=== PATIENT | male | born 1935 | race Caucasian/White ===

== ENCOUNTER 2018-04-30 22:49 | Inpatient (IN) ==
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
[2018-04-30 23:51] LABS: Baso % (Auto) 0.4 % (0.0-2.0); Eos # (Auto) 0.2 th/mm3 (0.0-0.4); Eos % (Auto) 2.9 % (0.0-4.0); Hematocrit 42.2 % (39.0-51.0); Hemoglobin 14.2 gm/dL (13.0-17.0); Lymph # (Auto) 1.6 th/mm3 (1.0-4.8); Lymph % (Auto) 25.2 % (9.0-44.0); Mean Corpuscular HGB Conc 33.6 % (32.0-36.0); Mean Corpuscular Hemoglobin 31.3 pg (27.0-34.0); Mean Corpuscular Volume 93.4 fL (80.0-100.0); Mean Platelet Volume 7.9 fL (7.0-11.0); Mono # (Auto) 0.6 th/mm3 (0.0-0.9); Mono % (Auto) 9.5 % (0.0-8.0); Platelet Count 313 th/mm3 (150-450); Red Blood Count 4.52 mil/mm3 (4.50-5.90); Red Cell Distribution Width 13.5 % (11.6-17.2); White Blood Count 6.5 th/mm3 (4.0-11.0)
[2018-05-01] LABS: Bilirubin,Urine Negative (Negative); Clarity,Urine Clear (Clear); Color,Urine Yellow (Yellw/Straw); Glucose,Urine (UA) Negative (Negative); Leukocyte Esterase,Urine Negative (Negative); Mucus,Urine Few /lpf (Occasional); Nitrite,Urine Negative (Negative); Specific Gravity,Urine 1.026 (1.002-1.035); Squamous Epithelial Cell,Urine 1 /hpf (0-5); Urobilinogen,Urine 4 or Greater mg/dL (Less than 2)
[2018-05-01 00:03] LABS: Amphetamine Screen,Urine Neg (Neg); Barbiturate Screen,Urine Neg (Neg); Cannabinoid Screen,Urine Neg (Neg); Cocaine Screen,Urine Neg (Neg)
[2018-05-01 00:11] LABS: Opiate Screen,Urine Neg (Neg)
[2018-05-01 00:12] LABS: Alanine Aminotransferase 24 U/L (12-78); Albumin 4.1 g/dL (3.4-5.0); Anion Gap 10 meq/L (5-15); Aspartate Aminotransferase 26 U/L (15-37); Blood Urea Nitrogen 18 mg/dL (7-18); Calcium 9.4 mg/dL (8.5-10.1); Carbon Dioxide 27.1 meq/L (21.0-32.0); Chloride 109 meq/L (98-107); Glomerular Filtration Rate 59 mL/min (>89); Glucose,Random 95 mg/dL (74-106); Potassium 3.8 meq/L (3.5-5.1); Sodium 146 meq/L (136-145)
[2018-05-01 00:22] LABS: Alkaline Phosphatase 58 U/L (45-117); Total Protein 7.6 g/dL (6.4-8.2)
[2018-05-01 00:39] LABS: Alcohol 60 mg/dL (0-5)
[2018-05-01] MEDS ORDERED: Acetaminophen 325 MG Tablet PO PRN (09:45)
[2018-05-01] MEDS ORDERED: Bisacodyl 10 MG Supp RECTAL PRN (09:45)
[2018-05-01] MEDS ORDERED: Aluminum/Magnesium/Simethacone Susp 30 ML UDC PO PRN (09:45)
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
[2018-05-01] MEDS ORDERED: SIMVASTATIN 5 MG PO SCH (18:00)
[2018-05-01] MEDS: Senna/Docusate Sodium 8.6/50 MG Tablet PO SCH (22:03)
[2018-05-01] MEDS: Pantoprazole Sodium 20 MG DR Tablet PO SCH (22:06)
[2018-05-02 07:45] LABS: Carbon Dioxide 28.4 meq/L (21.0-32.0); Potassium 3.4 meq/L (3.5-5.1)
[2018-05-02 07:49] LABS: Chol/HDL Ratio 4.06 Ratio; HDL Cholesterol 43.1 mg/dL (40.0-60.0)
[2018-05-02] MEDS: Pantoprazole Sodium 20 MG DR Tablet PO SCH ×2 (10:03→21:15)
[2018-05-02] MEDS: Senna/Docusate Sodium 8.6/50 MG Tablet PO SCH ×2 (10:03→21:18)
[2018-05-02 12:20] LABS: Hemoglobin A1c 5.6 % (4.3-6.0)
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
[2018-05-02] MEDS: Lisinopril 10 MG Tablet PO SCH (16:32)
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
[2018-05-03] MEDS: QUEtiapine 25 MG Tablet PO SCH ×2 (00:18→23:58)
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
[2018-05-03] MEDS: Senna/Docusate Sodium 8.6/50 MG Tablet PO SCH ×2 (10:29→20:50)
[2018-05-03] MEDS: Lisinopril 10 MG Tablet PO SCH (10:30)
[2018-05-03] MEDS: Pantoprazole Sodium 20 MG DR Tablet PO SCH ×2 (10:31→20:50)
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
[2018-05-04] MEDS: LORazepam 0.5 MG Tablet PO PRN ×2 (01:11→21:45)
[2018-05-04] MEDS: Pantoprazole Sodium 20 MG DR Tablet PO SCH ×3 (08:42→21:44)
[2018-05-04] MEDS: Senna/Docusate Sodium 8.6/50 MG Tablet PO SCH ×3 (08:42→21:45)
[2018-05-04] MEDS: QUEtiapine 25 MG Tablet PO SCH ×3 (08:42→21:44)
[2018-05-04] MEDS: Lisinopril 10 MG Tablet PO SCH ×2 (09:48→21:44)
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
[2018-05-05 08:20] LABS: Hematocrit 44.4 % (39.0-51.0); Mean Corpuscular HGB Conc 33.8 % (32.0-36.0); Mean Corpuscular Hemoglobin 31.4 pg (27.0-34.0); Mean Corpuscular Volume 92.9 fL (80.0-100.0); Mean Platelet Volume 8.1 fL (7.0-11.0); Platelet Count 309 th/mm3 (150-450); Red Blood Count 4.78 mil/mm3 (4.50-5.90); Red Cell Distribution Width 13.3 % (11.6-17.2); White Blood Count 5.7 th/mm3 (4.0-11.0)
[2018-05-05 08:54] LABS: Calcium 9.5 mg/dL (8.5-10.1); Carbon Dioxide 26.7 meq/L (21.0-32.0); Potassium 3.7 meq/L (3.5-5.1)
[2018-05-05] MEDS: QUEtiapine 25 MG Tablet PO SCH ×2 (09:10→20:27)
[2018-05-05] MEDS: Lisinopril 10 MG Tablet PO SCH (09:13)
[2018-05-05] MEDS: LORazepam 0.5 MG Tablet PO PRN ×2 (09:15→20:29)
[2018-05-05] MEDS: Pantoprazole Sodium 20 MG DR Tablet PO SCH ×2 (09:16→20:27)
[2018-05-05] MEDS: Senna/Docusate Sodium 8.6/50 MG Tablet PO SCH ×2 (11:56→20:29)
--- NOTE | 2018-05-05 12:17 | P.PNPSY ---
Subjective Remarks: Pt seen and discussed with staff. Chart reviewed. Pt remains confused. RN reports that pt's reported that pt has a hx of schizophrenia. Yesterday he received ativan overnight for agitation and restlessness. Yesterday during visitation with , he became agitated due to focus on delusions of her cheating. No SI/HI. Mental Status Examination Appearance: Appropriate Consciousness: Alert Orientation: Person Motor Activity: Normal gait Speech: Unremarkable Language: Adequate Fund of Knowledge: Inadequate Attention and Concentration: Easily distracted Memory: Impaired Mood: Anxious Affect: Anxious Thought Process & Associations: Tangential Thought Content: Delusional Hallucination Type: None Delusion Type: Other (jealous-believes is having affairs) Suicidal Ideation: No Suicidal Plan: No Suicidal Intention: No Homicidal Ideation: No Homicidal Plan: No Homicidal Intention: No Insight: Poor Judgment: Impulsive Assessment and Plan - Assessment (1) Dementia with behavioral disturbance Code(s): F03.91 - Unspecified dementia with behavioral disturbance Status: Acute - Plan Plan: Continue current tx plan. Justification for Continued Inpatient Stay: agitation
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
[2018-05-05] MEDS ORDERED: Lisinopril 10 MG Tablet PO ONE (17:00)
[2018-05-05 20:14] LABS: Bilirubin,Urine Negative (Negative); Clarity,Urine Clear (Clear); Color,Urine Yellow (Yellw/Straw); Glucose,Urine (UA) Negative (Negative); Leukocyte Esterase,Urine Negative (Negative); Mucus,Urine Few /lpf (Occasional); Nitrite,Urine Negative (Negative); Specific Gravity,Urine 1.015 (1.002-1.035)
--- NOTE | 2018-05-06 08:22 | P.PNPSY ---
Subjective Chief Complaint: Demenita, with behavioral disturbance Remarks: Medical records reviewed and discussed with nursing staff. Patient is in the common area eating breakfast. Patient engaged in conversation with Fariba RN, Karen RN and myself. He continues to have delusions that his is cheating on him. He broke out in tears when discussing his . He states that he is sleeping well and just wants to go home. Cooperative. No behavioral concerns. Review of Systems All other systems reviewed negative except as stated in HPI Mental Status Examination Appearance: Appropriate Consciousness: Alert Orientation: Person Motor Activity: Normal gait Speech: Unremarkable Language: Adequate Fund of Knowledge: Inadequate Attention and Concentration: Easily distracted Memory: Impaired Mood: Sad, Anxious, Other (crying) Affect: Flat, Blunt Thought Process & Associations: Tangential Thought Content: Delusional Hallucination Type: None Delusion Type: Other (jealous-believes is having affairs) Suicidal Ideation: No Suicidal Plan: No Suicidal Intention: No Homicidal Ideation: No Homicidal Plan: No Homicidal Intention: No Insight: Poor Judgment: Impulsive Assessment and Plan - Assessment (1) Dementia with behavioral disturbance Code(s): F03.91 - Unspecified dementia with behavioral disturbance Status: Acute - Plan Plan: Continue current tx plan. Justification for Continued Inpatient Stay: Moving patient to a less restrictive environment may result in his decompensation.
[2018-05-06] MEDS: QUEtiapine 25 MG Tablet PO SCH ×2 (08:24→20:05)
[2018-05-06] MEDS: Lisinopril 20 MG Tablet PO SCH (08:25)
[2018-05-06] MEDS: Pantoprazole Sodium 20 MG DR Tablet PO SCH ×2 (08:26→20:04)
[2018-05-06] MEDS: LORazepam 0.5 MG Tablet PO PRN (08:28)
[2018-05-06] MEDS: Senna/Docusate Sodium 8.6/50 MG Tablet PO SCH ×2 (09:00→20:04)
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
--- NOTE | 2018-05-06 14:25 | XR ---
EXAM DATE: 05/06/2018 2:16 PM EDT AGE/SEX: 83 years / Male INDICATIONS: Left hip pain post fall CLINICAL DATA: This is the patient's initial encounter. Patient reports that signs and symptoms have been present for 1 day and indicates a pain score of 4/10. MEDICAL/SURGICAL HISTORY: None. None. COMPARISON: [facility], CT ABDOMEN AND PELVIS W/O CONTRAST, 08/23/2016. . FINDINGS: Bony structures are intact and in normal alignment. Joints are intact without dislocation or signifi cant arthropathy. Osseous density is normal. Soft tissues are unremarkable. No radiopaque foreign bodies seen. CONCLUSION: No evidence of recent bony injury. Electronically signed by: Matt Bar MD 05/06/2018 2:23 PM EDT
[2018-05-07] MEDS: LORazepam 0.5 MG Tablet PO PRN (01:19)
[2018-05-07] MEDS: Pantoprazole Sodium 20 MG DR Tablet PO SCH ×2 (08:48→21:19)
[2018-05-07] MEDS: Senna/Docusate Sodium 8.6/50 MG Tablet PO SCH ×2 (08:48→21:19)
[2018-05-07] MEDS: Lisinopril 20 MG Tablet PO SCH ×2 (08:49→22:48)
[2018-05-07] MEDS: QUEtiapine 25 MG Tablet PO SCH ×2 (08:49→21:19)
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
--- NOTE | 2018-05-07 16:42 | P.TTN ---
- Patient Problems Problems: 1. Discharge planning 2. Medication compliance 3. Knowledge deficit 4. Lack of coping skills - Progress Toward Goals Provider Present: Dr. Kiara Gan Provider Input: Patient is refusing medication presently , continues to be paranoid and beleiving is having an affair. Patient should be able to go home with . Psychiatric Counselors Present: Other Psychiatric Therapist Input: Linda- Patient continues to present with paranoia , suspicious - Documentation Teaching Recipient: Patient
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
[2018-05-08] MEDS: QUEtiapine 25 MG Tablet PO SCH (08:00)
[2018-05-08] MEDS: Lisinopril 20 MG Tablet PO SCH ×2 (08:00→20:57)
[2018-05-08] MEDS: Senna/Docusate Sodium 8.6/50 MG Tablet PO SCH ×2 (08:00→20:55)
[2018-05-08] MEDS: Pantoprazole Sodium 20 MG DR Tablet PO SCH ×2 (08:01→20:57)
[2018-05-08] MEDS ORDERED: hydrALAZINE 25 MG Tablet PO PRN (08:58)
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
[2018-05-08] MEDS ORDERED: QUEtiapine 25 MG Tablet PO SCH (21:00)
[2018-05-08] MEDS: LORazepam 0.5 MG Tablet PO PRN (22:11)
--- NOTE | 2018-05-08 22:27 | ECG ---
Date Performed: 05/08/2018 Time Performed: 18:49:02 PTAGE: 83 years EKG: SINUS BRADYCARDIA WITH FIRST DEGREE AV BLOCK WITH OCCASIONAL VENTRICULAR PREMATURE COMPLEXE S POSSIBLE RIGHT VENTRICULAR CONDUCTION DELAY LEFT ANTERIOR FASCICULAR BLOCK POSSIBLE LEFT VENTRICULA R HYPERTROPHY LATERAL MYOCARDIAL INFARCTION PREVIOUS TRACING : 02/11/2014 11.54 Since the previous tracing, no significant change not ed DOCTOR: Michael Olvera Interpretating Date/Time 05/08/2018 22:25:21
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
[2018-05-09] MEDS: QUEtiapine 25 MG Tablet PO SCH ×2 (12:11→21:03)
[2018-05-09] MEDS: Pantoprazole Sodium 20 MG DR Tablet PO SCH ×2 (12:11→21:06)
[2018-05-09] MEDS: Lisinopril 20 MG Tablet PO SCH ×2 (12:11→21:07)
[2018-05-09] MEDS: Senna/Docusate Sodium 8.6/50 MG Tablet PO SCH ×2 (12:11→21:06)
--- NOTE | 2018-05-09 13:15 | P.PNPSY ---
Subjective Chief Complaint: Dementia, with behavioral disturbance Remarks: Patient seen and examined in coverage for Dr. Gan. Chart reviewed. Case discussed with nursing staff. Patient noted to be wandering into other people' s rooms. He is reportedly medication compliant. On my examination today, the patient continues to have concerns, reportedly delusional, about infidelity by . However, he insists that "what happened is nothing" referring to these allegations of infidelity. He does not verbalize any urge to injure his or anyone else. No side effects from medications. No physical complaints. Vital Signs Temp Pulse Resp BP Pulse Ox 05/09/18 10:30 50 L 16 137/66 96 05/09/18 06:00 97.3 F L 54 L 18 166/85 H 95 05/08/18 18:24 97.6 F 65 18 161/80 H 97 Intake and Output 05/09/18 05/09/18 05/09/18 06:59 14:59 22:59 Intake Total 360 / 360 Balance 360 / 360 Intake: Oral 360 / 360 Other: # Voids 2 Labs reviewed. Mental Status Examination Appearance: Appropriate Consciousness: Alert Orientation: Person Motor Activity: Normal gait, Other (No motor abnormalities noted) Speech: Unremarkable Language: Adequate Fund of Knowledge: Inadequate Attention and Concentration: Easily distracted Memory: Impaired Mood: Anxious Affect: Anxious Thought Process & Associations: Tangential Thought Content: Preoccupations, Delusional Hallucination Type: None Delusion Type: Other (that his is cheating on him) Suicidal Ideation: No Homicidal Ideation: No Insight: Poor Judgment: Poor Assessment and Plan - Assessment (1) Dementia with behavioral disturbance Code(s): F03.91 - Unspecified dementia with behavioral disturbance Status: Acute - Plan Plan: Titrate Seroquel to 12.5 mg in the morning and 37.5 mg at bedtime to target ongoing psychiatric symptoms. Continue to monitor on the inpatient unit. Continue other medications and care as ordered. Justification for Continued Inpatient Stay: Medication changes. Risk for decompensation in less restrictive environment. Discharge Planning: Per Dr. Gan
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
[2018-05-10] MEDS: Lisinopril 20 MG Tablet PO SCH ×2 (08:18→20:35)
[2018-05-10] MEDS: QUEtiapine 25 MG Tablet PO SCH ×2 (08:19→20:33)
[2018-05-10] MEDS: Pantoprazole Sodium 20 MG DR Tablet PO SCH ×2 (08:19→20:35)
[2018-05-10] MEDS: Senna/Docusate Sodium 8.6/50 MG Tablet PO SCH ×2 (08:19→20:31)
[2018-05-10] MEDS ORDERED: amLODIPine 5 MG Tablet PO SCH (09:00)
--- NOTE | 2018-05-10 10:36 | P.PNPSY ---
Subjective Chief Complaint: Dementia, with behavioral disturbance Remarks: Patient seen and case discussed with nursing staff in coverage for Dr. Gan. Chart reviewed. Ongoing delusional material regarding patient's having an affair per nursing staff. Patient noted to be inappropriately flirty with female staff. For me, patient remains confused but calm. No evident medication side effects. No physical distress. Vital Signs Temp Pulse Resp BP Pulse Ox 05/10/18 10:20 68 16 147/74 H 98 05/10/18 05:34 97.6 F 54 L 18 173/77 H 98 05/09/18 17:39 97.1 F L 56 L 16 149/82 H 97 Labs reviewed. No new labs. Review of Systems other (limited ROS today) Mental Status Examination Appearance: Appropriate Consciousness: Alert Orientation: Person Motor Activity: Normal gait, Other (No abnormal motor movements noted) Speech: Unremarkable Language: Adequate Fund of Knowledge: Inadequate Attention and Concentration: Easily distracted Memory: Impaired Mood: Anxious Affect: Anxious Thought Process & Associations: Tangential Thought Content: Preoccupations, Delusional Hallucination Type: None Delusion Type: Other (that his is cheating on him) Suicidal Ideation: No Homicidal Ideation: No Insight: Poor Judgment: Poor Assessment and Plan - Assessment (1) Dementia with behavioral disturbance Code(s): F03.91 - Unspecified dementia with behavioral disturbance Status: Acute - Plan Plan: Titrate Seroquel to 25/37.5mg to target ongoing delusions in the setting of dementia. Hospitalist input appreciated. Continue to monitor on the inpatient unit. Continue other medications and care as ordered. Patient's case was presented to the [place] act court and placed in continuance for 1 week with to serve as HCS. Justification for Continued Inpatient Stay: Medication changes. High risk for decompensation in less restrictive environment. Discharge Planning: Per Dr. Gan.
[2018-05-10] MEDS: LORazepam 0.5 MG Tablet PO PRN (10:59)
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
[2018-05-10] MEDS: amLODIPine 5 MG Tablet PO SCH (20:31)
[2018-05-11] MEDS: amLODIPine 5 MG Tablet PO SCH ×2 (08:55→21:20)
[2018-05-11] MEDS: Senna/Docusate Sodium 8.6/50 MG Tablet PO SCH ×2 (08:56→21:21)
[2018-05-11] MEDS: Pantoprazole Sodium 20 MG DR Tablet PO SCH ×2 (08:56→21:21)
[2018-05-11] MEDS: QUEtiapine 25 MG Tablet PO SCH ×2 (08:56→21:22)
[2018-05-11] MEDS: Lisinopril 20 MG Tablet PO SCH ×2 (08:56→21:22)
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
[2018-05-11] MEDS: hydrALAZINE 25 MG Tablet PO SCH (21:21)
--- NOTE | 2018-05-11 21:23 | P.PNPSY ---
Subjective Chief Complaint: Dementia, with behavioral disturbance Remarks: Patient seen for follow, chart reviewed. Discussion with nursing staff reported the patient with confusion, no behavioral disturbances, no paranoia. Patient was found ambulating on the unit, calm and cooperative; noted to be confused. Patient noted not to endorse any paranoid delusions. He denies delusion that his is cheating on him, reports his mood as being "good", sleeping well, good appetite, continues with confusion and rambling at times. Review of Systems All other systems reviewed negative except as stated in HPI Mental Status Examination Appearance: Appropriate Consciousness: Alert Orientation: Person Motor Activity: Normal gait, Other (No abnormal motor movements noted) Speech: Unremarkable Language: Adequate Fund of Knowledge: Inadequate Attention and Concentration: Easily distracted Memory: Impaired Mood: Good Affect: Appropriate Thought Process & Associations: Tangential, Other (rambling at times) Thought Content: Preoccupations, Delusional Hallucination Type: None Delusion Type: Other (that his is cheating on him - denies today) Suicidal Ideation: No Suicidal Plan: No Suicidal Intention: No Homicidal Ideation: No Homicidal Plan: No Homicidal Intention: No Insight: Poor Judgment: Poor Assessment and Plan - Assessment (1) Dementia with behavioral disturbance Code(s): F03.91 - Unspecified dementia with behavioral disturbance Status: Acute - Plan Plan: Patient with baseline confusion, no longer endorsing paranoia nor any delusion that his is cheating on him. Will continue current treatment, continue to monitor mood and behavior. Will continue to observe family to visit and if no further paranoid delusions and no further safety concerns as well as if family willing to accept patient back into the home, patient potentially to be discharged to family. Justification for Continued Inpatient Stay: At risk for further decompensation at lower level of care.
[2018-05-12] MEDS: amLODIPine 5 MG Tablet PO SCH ×2 (09:47→21:13)
[2018-05-12] MEDS: Lisinopril 20 MG Tablet PO SCH ×2 (09:47→21:13)
[2018-05-12] MEDS: hydrALAZINE 25 MG Tablet PO SCH ×2 (09:47→21:13)
[2018-05-12] MEDS: Senna/Docusate Sodium 8.6/50 MG Tablet PO SCH ×2 (09:47→21:28)
[2018-05-12] MEDS: Pantoprazole Sodium 20 MG DR Tablet PO SCH ×2 (09:47→21:12)
[2018-05-12] MEDS: QUEtiapine 25 MG Tablet PO SCH ×2 (09:47→21:14)
--- NOTE | 2018-05-12 12:41 | P.PNPSY ---
Subjective Chief Complaint: Dementia, with behavioral disturbance Remarks: Reviewed electronic medical records and discussed case with staff. Follow-up was conducted in the day room with QUINN Vaca present. Patient continues to be confused. He states that he slept "nice". And that he has been eating well. He complains that is the "same thing every day". His nurse advises he has had no behavioral issues however, they still continue to hide his medicines and putting. Upon discharge, his needs to be made aware of how best to administer his medications for his future success. Mental Status Examination Appearance: Appropriate Consciousness: Alert Orientation: Person Motor Activity: Normal gait, Other (No abnormal motor movements noted) Speech: Unremarkable Language: Adequate Fund of Knowledge: Inadequate Attention and Concentration: Easily distracted Memory: Impaired Mood: Good Affect: Appropriate Thought Process & Associations: Tangential, Other (rambling at times) Thought Content: Preoccupations, Delusional Hallucination Type: None Delusion Type: Other (that his is cheating on him - denies today) Suicidal Ideation: No Suicidal Plan: No Suicidal Intention: No Homicidal Ideation: No Homicidal Plan: No Homicidal Intention: No Insight: Poor Judgment: Poor Assessment and Plan - Assessment (1) Dementia with behavioral disturbance Code(s): F03.91 - Unspecified dementia with behavioral disturbance Status: Acute - Plan Plan: Patient will be reevaluated Monday by the attending psychiatrist. Continue with current treatment plan. Justification for Continued Inpatient Stay: Moving this patient to a less restrictive environment would likely result in decompensation.
--- NOTE | 2018-05-13 08:22 | P.PNPSY ---
Subjective Chief Complaint: Dementia, with behavioral disturbance Remarks: Reviewed electronic medical records and discussed case with staff. Follow-up was conducted in the day room with QUINN Lockett present. Patient is pre- occupied with being discharged. No behavioral concerns. Eating and sleeping well. 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 Per notes discharge plan in progress. . Review of Systems All other systems reviewed negative except as stated in HPI Mental Status Examination Appearance: Appropriate Consciousness: Alert Orientation: Person Motor Activity: Normal gait, Other (No abnormal motor movements noted) Speech: Unremarkable Language: Adequate Fund of Knowledge: Inadequate Attention and Concentration: Easily distracted Memory: Impaired Mood: Good Affect: Appropriate Thought Process & Associations: Tangential, Other (rambling at times) Thought Content: Preoccupations, Delusional Hallucination Type: None Delusion Type: Other (that his is cheating on him - denies today) Suicidal Ideation: No Suicidal Plan: No Suicidal Intention: No Homicidal Ideation: No Homicidal Plan: No Homicidal Intention: No Insight: Poor Judgment: Poor Assessment and Plan - Assessment (1) Dementia with behavioral disturbance Code(s): F03.91 - Unspecified dementia with behavioral disturbance Status: Acute - Plan Plan: Patient will be reevaluated Monday by the attending psychiatrist. Continue with current treatment plan. Justification for Continued Inpatient Stay: Moving patient to a less restrictive environment may result in his decompensation.
[2018-05-13] MEDS: Lisinopril 20 MG Tablet PO SCH ×2 (08:40→22:13)
[2018-05-13] MEDS: Senna/Docusate Sodium 8.6/50 MG Tablet PO SCH ×2 (08:40→20:07)
[2018-05-13] MEDS: Pantoprazole Sodium 20 MG DR Tablet PO SCH ×2 (08:40→20:07)
[2018-05-13] MEDS: hydrALAZINE 25 MG Tablet PO SCH ×2 (08:40→20:08)
[2018-05-13] MEDS: QUEtiapine 25 MG Tablet PO SCH ×2 (08:40→20:08)
[2018-05-13] MEDS: amLODIPine 5 MG Tablet PO SCH ×2 (08:41→20:06)
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
[2018-05-13] MEDS: LORazepam 0.5 MG Tablet PO PRN (21:58)
[2018-05-14 05:36] VITALS: BP 164/79; PULSE 60; RESP 18; TEMP 97.4; O2SAT 95
[2018-05-14] MEDS: Pantoprazole Sodium 20 MG DR Tablet PO SCH (09:01)
[2018-05-14] MEDS: Senna/Docusate Sodium 8.6/50 MG Tablet PO SCH (09:01)
[2018-05-14] MEDS: amLODIPine 5 MG Tablet PO SCH (09:01)
[2018-05-14] MEDS: QUEtiapine 25 MG Tablet PO SCH (09:01)
[2018-05-14] MEDS: Lisinopril 20 MG Tablet PO SCH (09:02)
[2018-05-14] MEDS: hydrALAZINE 25 MG Tablet PO SCH (09:02)
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
[2018-05-16] MEDS: hydrALAZINE 25 MG Tablet PO SCH (10:38)
[2018-05-16] MEDS: amLODIPine 5 MG Tablet PO SCH (10:39)
[2018-05-16] MEDS: Pantoprazole Sodium 20 MG DR Tablet PO SCH (10:39)
[2018-05-16] MEDS: Senna/Docusate Sodium 8.6/50 MG Tablet PO SCH (10:42)
[2018-05-16] MEDS: Lisinopril 20 MG Tablet PO SCH (10:43)
[2018-05-16] MEDS: QUEtiapine 25 MG Tablet PO SCH (10:44)
== END 2018-05-14 13:00 | disposition home or self-care (01) ==
LOC: NEPE 22:49 → NEDA 05-01 09:43 → H250 05-01 11:16
PROVIDERS: ADMIT Student in an Organized Health Care Education/Training Program; ATTEND Student in an Organized Health Care Education/Training Program

== ENCOUNTER 2018-05-15 13:48 | Inpatient (IN) ==
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
[2018-05-15] MEDS ORDERED: Bisacodyl 10 MG Supp RECTAL PRN (18:41)
[2018-05-15] MEDS ORDERED: Senna/Docusate Sodium 8.6/50 MG Tablet PO PRN (18:41)
[2018-05-15] MEDS ORDERED: Aluminum/Magnesium/Simethacone Susp 30 ML UDC PO PRN (18:41)
[2018-05-15] MEDS: Pantoprazole Sodium 20 MG DR Tablet PO SCH (20:45)
[2018-05-15] MEDS: amLODIPine 5 MG Tablet PO SCH (20:45)
[2018-05-15] MEDS ORDERED: hydrALAZINE 25 MG Tablet PO SCH (21:00)
[2018-05-15] MEDS ORDERED: QUEtiapine 25 MG Tablet PO SCH (21:00)
[2018-05-16] MEDS ORDERED: QUEtiapine 25 MG Tablet PO SCH ×2 (09:00→20:03)
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
--- NOTE | 2018-05-16 13:23 | P.TTN ---
- Patient Problems Problems: 1. Discharge planning 2. Medication compliance 3. Knowledge deficit 4. Lack of coping skills - Progress Toward Goals Provider Present: Dr. Kath Foster, Dr. Kiara Gan Provider Input: Remain for further stabilization. Work with Family on Placement. Nurse(s) Present: Nola Nurse Input: Non-Compliant with medications, confused, requires redirection. Not sleeping. Psychiatric Counselors Present: Danny Genao Jr., [facility], Other (Linda Neil) Psychiatric Therapist Input: Counselor will meet with patient to discuss a safe discharge plan. Group Spec/RT/OT/SIMMS Present: BERE Dyson Group Spec/RT/OT/SIMMS Input: Patient will attend the group activities with encouragement. Pt is somewhat exit seeking. - Documentation Teaching Recipient: Patient
[2018-05-16 15:03] LABS: Baso % (Auto) 0.7 % (0.0-2.0); Eos # (Auto) 0.1 th/mm3 (0.0-0.4); Eos % (Auto) 2.5 % (0.0-4.0); Hematocrit 41.2 % (39.0-51.0); Hemoglobin 13.9 gm/dL (13.0-17.0); Lymph # (Auto) 1.2 th/mm3 (1.0-4.8); Lymph % (Auto) 20.6 % (9.0-44.0); Mean Corpuscular HGB Conc 33.7 % (32.0-36.0); Mean Corpuscular Hemoglobin 31.4 pg (27.0-34.0); Mean Corpuscular Volume 93.1 fL (80.0-100.0); Mean Platelet Volume 8.5 fL (7.0-11.0); Mono # (Auto) 0.6 th/mm3 (0.0-0.9); Mono % (Auto) 10.2 % (0.0-8.0); Neut # (Auto) 3.9 th/mm3 (1.8-7.7); Platelet Count 260 th/mm3 (150-450); Red Blood Count 4.43 mil/mm3 (4.50-5.90); Red Cell Distribution Width 13.3 % (11.6-17.2); White Blood Count 5.9 th/mm3 (4.0-11.0)
[2018-05-16 15:31] LABS: Alkaline Phosphatase 62 U/L (45-117); HDL Cholesterol 39.6 mg/dL (40.0-60.0); Total Protein 7.1 g/dL (6.4-8.2); Troponin I 0.04 ng/mL (0.02-0.05)
[2018-05-16 15:46] LABS: Alanine Aminotransferase 30 U/L (12-78); Albumin 3.8 g/dL (3.4-5.0); Anion Gap 9 meq/L (5-15); Aspartate Aminotransferase 29 U/L (15-37); Blood Urea Nitrogen 19 mg/dL (7-18); Calcium 8.9 mg/dL (8.5-10.1); Carbon Dioxide 26.5 meq/L (21.0-32.0); Chloride 110 meq/L (98-107); Chol/HDL Ratio 4.49 Ratio; Cholesterol 178 mg/dL (120-200); Glomerular Filtration Rate 47 mL/min (>89); Glucose,Random 95 mg/dL (74-106); LDL Cholesterol,Calculated 108 mg/dL (0-99); Potassium 3.9 meq/L (3.5-5.1); Sodium 145 meq/L (136-145); Triglycerides 150 mg/dL (42-150)
--- NOTE | 2018-05-16 16:43 | P.HPPSY ---
Provisional Diagnosis Admission Date: May 15, 2018 15:07 [place] I.: Dementia with behavioral disturbances Competence Certification of Person's Competence To Provide Express and Informed Consent I have personally examined Mayur Brooks, a person being served at [facility] on, May 16, 2018 1643. Express and informed consent means consent voluntarily given in writing, by a competent person, after sufficient explanation and disclosure of the subject matter involved to enable the person to make a knowing and willful decision without any element of force, fraud, deceit, duress, or other form of constraint or coercion. This person is 18 years of age or older, is not now known to be incompetent to consent to treatment with a guardian advocate, and does not have a health care surrogate or proxy currently making medical treatment decisions. I have found this person to be one of the following: [] Competent to provide express and informed consent, as defined above, for voluntary admission to this facility and is competent to provide express and informed consent for treatment. He/she has the consistent capacity to make well reasoned, willful, and knowing decisions concerning his or her medical or mental health treatment. The person fully and consistently understands the purpose of the admission for examination/placement and is fully capable of personally exercising all rights assured [place]xxx] Incompetent to provide express and informed consent to voluntary admission , and this is incompetent to provide express and informed consent to treatment. The person must be transferred to involuntary status and a petition for a guardian advocate filed with the Circuit Court. [] Refusing to provide express and informed consent to voluntary admission but is competent to provide express and informed consent for treatment. The person must be discharged or transferred to involuntary status. Form shall be completed within 24 hours of a person's arrival at the receiving facility and filed in the clinical record of each person: 1. Admitted on a voluntary basis 2. Permitted to provide express and informed consent to his/her own treatment 3. Allowed to transfer from involuntary to voluntary status 4. Prior to permitting a person to consent to his or her own treatment after having been previously found incompetent to consent to treatment. History of Present Illness Capacity: Lacks capacity History of Present Illness: Patient is an 83-year-old man, , domiciled with , retired, with a past psychiatric history of dementia, one recent previous psychiatric admission, no previous suicide attempt or self-injurious behavior, substance use history significant for daily alcohol use, with a past medical history of hypertension, hyperlipidemia who was brought under [place] act after patient noted to be verbally aggressive toward , bizrare delusions of cheating on him, recently took the vehicle and drove off which patient was re-admitted to the inpatient psychiatry for further evaluation and management. Patient was recently discharged from the inpatient psychiatry unit back to family as they did not want patient to be placed at that time and wanted to attempt to manage patient at home. Patient apparently was not able to be managed by and was brought back to the hospital. Discussion with nursing staff reported that patient noted to be confused, needed redirection, refusing EEG but noted to be social, ecstasy can at times but redirectable. Patient was found ambulating on the unit noted to be social with other patients. Patient states that he is here speaking with his friends, noted to be confused, alert and oriented only to person. When asked about events prior to his admission patient has no recollection and was noted to be's tangential with random topics. Patient was encouraged to comply with treatment evaluation which he agreed. Patient denies any suicidal homicidal ideations, denies any perceptional disturbances. Collateral information obtained by patient's will also serve as patient's healthcare surrogate and consents to have patient resume psychotropic medications. Patient's states that after he had gotten back home he had been upset with due to being From driving which he became belligerent and verbally threatening toward her but no physical aggression. He also began to accuse her of cheating on her was inconsistent with compliance with medications and had taken the keys to the vehicle from her purse and left the house starting but had made his way back and upon return was brought to the hospital. History unchanged from recent discharge as stated below: Family psychiatric history: Denies. Past psychiatric history: Previous psychiatric diagnosis of dementia, denies any previous psychiatric admissions, suicide attempts of interest behavior, denies any history of abuse. Substance use history: Daily alcohol use of 1-2 glasses of wine per day, denies use of any other drugs. Past medical history: Hypertension hyperlipidemia, V. tach, lung disease, Bilateral knee replacements Allergies: NKDA Social history: , domiciled white, retired, highest education sixth grade. - Inpatient Certification I certify that the inpatient services were ordered in accordance with Medicare regulations governing the order. This includes certification that hospital inpatient services are reasonable and necessary and in the case of services not specified as inpatient-only under 42 CFR 419.22(n), that they are appropriately provided as inpatient services in accordance to with the 2-midnight benchmark under 43 CFR 412.3(e) I certify that inpatient psychiatric hospital services are medically necessary. Evaluation and treatment and/or diagnostic testing are expected to improve the patient's condition. The patient needs on a daily basis, active treatment furnished directly by or requiring the supervision of inpatient psychiatric facility personnel. Estimated Total Length of Stay (Days): 7 Plans for Post Hospital Care: Not yet determined Review of Systems All other systems reviewed negative except as stated in HPI PMFSH - History History Provided By: Patient, Family Member, Medical Record, Law Enforcement - Medical History Medical History: Medical History (Last Reviewed 05/16/18 @ 13:14 by RASHAD Lauren) Dementia GERD (gastroesophageal reflux disease) Hypercholesteremia Hypertension Lung disease Schizophrenia V-tach - Surgical History Surgical History: Surgical History (Last Reviewed 05/16/18 @ 13:14 by RASHAD Lauren) History of bilateral knee replacement Total knee replacement status - Family History Family History: Family History (Last Updated 05/16/18 @ 13:14 by RASHAD Lauren) Other Family history unobtainable - Tobacco History Second Hand Smoke Exposure: No Smoking Status: Cognitive impairment - Alcohol History How Often Do You Have a Drink Containing Alcohol: Unable to Obtain - Substance Use History Substance History: Unable to Obtain - Travel History Recent Travel in the [place] Within the Last 8 Weeks: No Recent Travel Out of the Country Within the Last 8 Weeks: No - Immunization History Tetanus Immunization: Unable to Assess Hx Influenza Vaccine This Season: Unable to Assess Quality Measures - Psychiatric History Psychological trauma history: Denies Violence risk to others in the last 6 months: Elevated due to recent verbal aggression toward Violence risk to self in the last 6 months: Low - Substance Abuse History Drug or alcohol use in the past 12 months: See HPI - Patient Strengths Patient's strengths (minimum of 2): Verbal and communicative Medications and Allergies Active Medications: Active Medications Al Hydrox/Mg Hydrox/Simethicone (Mag-Al Plus Susp Liq) 30 ml PO Q6H PRN PRN Reason: DYSPEPSIA Al Hydroxide/Mg Hydroxide (Milk Of Magnesia Liq) 30 ml PO Q12H PRN PRN Reason: Mild Constipation Amlodipine Besylate (Norvasc) 5 mg PO BID [facility] Last Admin: 05/15/18 20:45 Dose: 5 mg Bisacodyl (Dulcolax Supp) 10 mg RECTAL DAILY PRN PRN Reason: SEVERE CONSITIPATION Cetirizine HCl (Zyrtec) 10 mg PO DAILY [facility] Clonidine HCl (Catapres) 0.1 mg PO Q6H PRN PRN Reason: SBP>160, DBP>90 Diphenhydramine HCl (Benadryl) 50 mg PO HS PRN PRN Reason: INSOMNIA Last Admin: 05/16/18 01:22 Dose: 50 mg Hydralazine HCl (Apresoline) 25 mg PO TID [facility] Lactulose (Lactulose Liq) 30 ml PO DAILY PRN PRN Reason: SEVERE CONSITIPATION Lorazepam (Ativan) 0.5 mg PO Q12H PRN PRN Reason: MODERATE TO SEVERE ANXIETY Memantine (Namenda) 5 mg PO DAILY [facility] Miscellaneous (Pill Splitter) 1 each OTHER UNSCH PRN PRN Reason: PILL SPLITTER Pantoprazole Sodium (Protonix) 20 mg PO BID [facility] Last Admin: 05/15/18 20:45 Dose: 20 mg Pravastatin Sodium (Pravachol) 10 mg PO DAILY@1800 [facility] Quetiapine Fumarate (Seroquel) 25 mg PO DAILY [facility] Quetiapine Fumarate (Seroquel) 37.5 mg PO HS [facility] Last Admin: 05/15/18 20:45 Dose: Not Given Senna/Docusate Sodium (Katelyn-Colace) 1 tab PO BID PRN PRN Reason: CONSTIPATION Sennosides (Senokot) 17.2 mg PO Q12H PRN PRN Reason: Moderate Constipation Allergies Allergy/AdvReac Type Severity Reaction Status Date / Time No Known Allergies Allergy Verified 05/01/18 06:22 Home Medications Medication Instructions Recorded Confirmed Type aspirin 81 mg PO BID 05/01/18 05/01/18 History cetirizine [Zyrtec] 10 mg PO DAILY 05/01/18 05/01/18 History Results - Labs CBC & Chem 7: 05/16/18 14:08 05/16/18 14:08 Labs: Laboratory Results - last 24 hr 05/16/18 05/16/18 05/16/18 14:08 14:08 14:08 WBC 5.9 RBC 4.43 L Hgb 13.9 Hct 41.2 MCV 93.1 MCH 31.4 MCHC 33.7 RDW 13.3 Plt Count 260 MPV 8.5 Neut % (Auto) 66.0 Lymph % (Auto) 20.6 [place] % (Auto) 10.2 H Eos % (Auto) 2.5 Baso % (Auto) 0.7 Neut # (Auto) 3.9 Lymph # (Auto) 1.2 [place] # (Auto) 0.6 Eos # (Auto) 0.1 Baso # (Auto) 0.0 WBC Differential . Differential Comment Auto diff final Sodium 145 Potassium 3.9 Chloride 110 H Carbon Dioxide 26.5 Anion Gap 9 BUN 19 H Creatinine 1.43 H Estimated GFR 47 L Random Glucose 95 Calcium 8.9 Total Bilirubin 0.3 AST 29 ALT 30 Alkaline Phosphatase 62 Troponin I 0.04 Cancelled Total Protein 7.1 Albumin 3.8 Triglycerides 150 Cholesterol 178 LDL Cholesterol, Calc 108 H HDL Cholesterol 39.6 L Cholesterol/HDL Ratio 4.49 Exam Vital signs: Vital Signs 05/15/18 18:12 05/16/18 06:05 Temperature 97.9 F 97.9 F Pulse Rate 82 56 L Respiratory Rate 18 16 Blood Pressure 191/85 H 140/67 Pulse Oximetry 96 97 Intake & Output 05/15/18 05/16/18 05/16/18 18:59 06:59 18:59 Intake Total 720 / 720 Balance 720 / 720 Weight 63.2 kg Intake: Oral 720 / 720 Other: Weight On Admission 63.2 kg Narrative: Patient not noted to be in acute distress, no gross motor abnormalities, no signs of tremor or EPS, no signs of psychomotor agitation or retardation. - Constitutional no acute distress, cooperative Mental Status Examination Appearance: Appropriate Consciousness: Alert Orientation: Person Motor Activity: Normal gait Speech: Unremarkable Language: Adequate Fund of Knowledge: Inadequate Attention and Concentration: Easily distracted Memory: Impaired Mood: Good Affect: Anxious Thought Process & Associations: Other ([place] and rambling at times) Thought Content: Delusional Hallucination Type: None Delusion Type: Bizarre Suicidal Ideation: No Suicidal Plan: No Suicidal Intention: No Homicidal Ideation: No Homicidal Plan: No Homicidal Intention: No Insight: Poor Judgment: Poor Assessment and Plan - Assessment (1) Dementia with behavioral disturbance Code(s): F03.91 - Unspecified dementia with behavioral disturbance Status: Acute - Plan Plan: Estimated LOS: [] days Patient is an 83-year-old man with 1 recent psychiatric admission, recently discharged several days ago at the family's care who was not able to manage patient due to ongoing neurocognitive deficits from dementia with behavioral disturbances recently. She will be admitted under involuntary hospitalization, second opinion requested. Patient's continue to serve as health care surrogate and guardian advocate. Patient will resume quetiapine 25mg daily/50mg HS, continue rest of medications. Monitor mood and behavior. Discharge planning in progress. Justification for Continued Inpatient Stay: At risk of further decompensation a lower level of care (1) Dementia with behavioral disturbance Qualifiers: Dementia type: unspecified type Qualified Code(s): F03.91 - Unspecified dementia with behavioral disturbance
[2018-05-16 16:56] LABS: Hemoglobin A1c 5.5 % (4.3-6.0)
[2018-05-16] MEDS: amLODIPine 5 MG Tablet PO SCH ×2 (17:51→20:45)
[2018-05-16] MEDS: Pantoprazole Sodium 20 MG DR Tablet PO SCH ×2 (17:52→20:45)
[2018-05-16] MEDS: hydrALAZINE 25 MG Tablet PO SCH (19:05)
[2018-05-17 07:10] LABS: Calcium 9.1 mg/dL (8.5-10.1); Carbon Dioxide 27.9 meq/L (21.0-32.0); Potassium 3.8 meq/L (3.5-5.1)
[2018-05-17 07:20] LABS: Baso % (Auto) 0.5 % (0.0-2.0); Eos # (Auto) 0.2 th/mm3 (0.0-0.4); Eos % (Auto) 3.3 % (0.0-4.0); Hematocrit 42.4 % (39.0-51.0); Hemoglobin 14.2 gm/dL (13.0-17.0); Lymph # (Auto) 1.4 th/mm3 (1.0-4.8); Lymph % (Auto) 22.4 % (9.0-44.0); Mean Corpuscular HGB Conc 33.6 % (32.0-36.0); Mean Corpuscular Hemoglobin 31.4 pg (27.0-34.0); Mean Corpuscular Volume 93.5 fL (80.0-100.0); Mean Platelet Volume 8.5 fL (7.0-11.0); Mono # (Auto) 0.6 th/mm3 (0.0-0.9); Mono % (Auto) 10.4 % (0.0-8.0); Neut # (Auto) 3.9 th/mm3 (1.8-7.7); Neut % (Auto) 63.4 % (16.0-70.0); Platelet Count 246 th/mm3 (150-450); Red Blood Count 4.53 mil/mm3 (4.50-5.90); Red Cell Distribution Width 13.3 % (11.6-17.2); White Blood Count 6.2 th/mm3 (4.0-11.0)
[2018-05-17] MEDS: hydrALAZINE 25 MG Tablet PO SCH (08:10)
[2018-05-17] MEDS: Pantoprazole Sodium 20 MG DR Tablet PO SCH ×2 (08:11→20:40)
[2018-05-17] MEDS: amLODIPine 5 MG Tablet PO SCH ×2 (08:11→20:40)
[2018-05-17] MEDS: LORazepam 0.5 MG Tablet PO PRN ×2 (08:11→19:59)
--- NOTE | 2018-05-17 14:56 | P.CONPSY ---
Provisional Diagnosis Admission Date: May 15, 2018 15:07 [place] I.: Dementia with behavioral disturbances History of Present Illness Service: ER Primary Care Provider: UNKNOWN Chief Complaint: "C/o someone owes me Money" History of Present Illness: Patient is an 83-year-old man, , domiciled with , retired, with a past psychiatric history of dementia, one recent previous psychiatric admission, no previous suicide attempt or self-injurious behavior, substance use history significant for daily alcohol use, with a past medical history of hypertension, hyperlipidemia who was brought under [place] act after patient noted to be verbally aggressive toward , bizrare delusions of cheating on him, recently took the vehicle and drove off which patient was re-admitted to the inpatient psychiatry for further evaluation and management. Patient was recently discharged from the inpatient psychiatry unit back to family as they did not want patient to be placed at that time and wanted to attempt to manage patient at home. Patient apparently was not able to be managed by and was brought back to the hospital. Discussion with nursing staff reported that patient noted to be confused, needed redirection, refusing EEG but noted to be social, ecstasy can at times but redirectable. Patient was found ambulating on the unit noted to be social with other patients. Patient states that he is here speaking with his friends, noted to be confused, alert and oriented only to person. When asked about events prior to his admission patient has no recollection and was noted to be's tangential with random topics. Patient was encouraged to comply with treatment evaluation which he agreed. Patient denies any suicidal homicidal ideations, denies any perceptional disturbances. Collateral information obtained by patient's will also serve as patient's healthcare surrogate and consents to have patient resume psychotropic medications. Patient's states that after he had gotten back home he had been upset with due to being From driving which he became belligerent and verbally threatening toward her but no physical aggression. He also began to accuse her of cheating on her was inconsistent with compliance with medications and had taken the keys to the vehicle from her purse and left the house starting but had made his way back and upon return was brought to the hospital. The patient is a 83-year-old man, domiciled his , retired, with a psychiatric history of dementia, he was recently hospitalized here in [place], he was discharged back home, but he came back due to aggressive behavior toward his family, he was consulted to me for second opinion. On my psychiatric evaluation the patient is calm, superficially cooperative, diffusely confused. The patient reports that he feels fine, but he is awaiting to be discharged to go back to the [facility] with his family. He reports okay mood, he is oriented to person, completely disoriented in time and place, denies suicidal enemas ideation, denies visual and auditory hallucinations. [facility] - History History Provided By: Patient, Family Member, Medical Record, Law Enforcement - Medical History Medical History: Medical History (Last Reviewed 05/16/18 @ 13:14 by RASHAD Lauren) Dementia GERD (gastroesophageal reflux disease) Hypercholesteremia Hypertension Lung disease Schizophrenia V-tach - Surgical History Surgical History: Surgical History (Last Reviewed 05/16/18 @ 13:14 by RASHAD Lauren) History of bilateral knee replacement Total knee replacement status - Family History Family History: Family History (Last Updated 05/16/18 @ 13:14 by RASHAD Lauren) Other Family history unobtainable - Tobacco History Second Hand Smoke Exposure: No Smoking Status: Cognitive impairment - Alcohol History How Often Do You Have a Drink Containing Alcohol: Unable to Obtain - Substance Use History Substance History: Unable to Obtain - Travel History Recent Travel in the [place] Within the Last 8 Weeks: No Recent Travel Out of the Country Within the Last 8 Weeks: No - Immunization History Tetanus Immunization: Unable to Assess Hx Influenza Vaccine This Season: Unable to Assess Medications and Allergies Active Medications: Active Medications Al Hydrox/Mg Hydrox/Simethicone (Mag-Al Plus Susp Liq) 30 ml PO Q6H PRN PRN Reason: DYSPEPSIA Al Hydroxide/Mg Hydroxide (Milk Of Magnesia Liq) 30 ml PO Q12H PRN PRN Reason: Mild Constipation Amlodipine Besylate (Norvasc) 5 mg PO BID [facility] Last Admin: 05/17/18 08:11 Dose: 5 mg Bisacodyl (Dulcolax Supp) 10 mg RECTAL DAILY PRN PRN Reason: SEVERE CONSITIPATION Cetirizine HCl (Zyrtec) 10 mg PO DAILY [facility] Last Admin: 05/17/18 08:11 Dose: 10 mg Clonidine HCl (Catapres) 0.1 mg PO Q6H PRN PRN Reason: SBP>160, DBP>90 Diphenhydramine HCl (Benadryl) 50 mg PO HS PRN PRN Reason: INSOMNIA Last Admin: 05/16/18 20:45 Dose: 50 mg Hydralazine HCl (Apresoline) 25 mg PO TID [facility] Last Admin: 05/17/18 08:10 Dose: 25 mg Lactulose (Lactulose Liq) 30 ml PO DAILY PRN PRN Reason: SEVERE CONSITIPATION Lorazepam (Ativan) 0.5 mg PO Q12H PRN PRN Reason: MODERATE TO SEVERE ANXIETY Last Admin: 05/17/18 08:11 Dose: 0.5 mg Memantine (Namenda) 5 mg PO DAILY [facility] Last Admin: 05/17/18 08:10 Dose: 5 mg Miscellaneous (Pill Splitter) 1 each OTHER UNSCH PRN PRN Reason: PILL SPLITTER Pantoprazole Sodium (Protonix) 20 mg PO BID [facility] Last Admin: 05/17/18 08:11 Dose: 20 mg Pravastatin Sodium (Pravachol) 10 mg PO DAILY@1800 [facility] Last Admin: 05/16/18 19:06 Dose: 10 mg Quetiapine Fumarate (Seroquel) 25 mg PO DAILY [facility] Quetiapine Fumarate (Seroquel) 50 mg PO HS [facility] Senna/Docusate Sodium (Katelyn-Colace) 1 tab PO BID PRN PRN Reason: CONSTIPATION Sennosides (Senokot) 17.2 mg PO Q12H PRN PRN Reason: Moderate Constipation Allergies Allergy/AdvReac Type Severity Reaction Status Date / Time No Known Allergies Allergy Verified 05/01/18 06:22 Home Medications Medication Instructions Recorded Confirmed Type aspirin 81 mg PO BID 05/01/18 05/01/18 History cetirizine [Zyrtec] 10 mg PO DAILY 05/01/18 05/01/18 History Exam Vital signs: Vital Signs 05/17/18 06:01 Temperature 98 F Pulse Rate 70 Respiratory Rate 16 Blood Pressure 156/74 H Pulse Oximetry 98 Intake & Output 05/16/18 05/17/18 05/17/18 18:59 06:59 18:59 Intake Total 720 / 720 720 / 720 Balance 720 / 720 720 / 720 Intake: Oral 720 / 720 720 / 720 Mental Status Examination Appearance: Appropriate Consciousness: Alert Orientation: Person Motor Activity: Normal gait Speech: Unremarkable Language: Adequate Fund of Knowledge: Inadequate Attention and Concentration: Easily distracted Memory: Impaired Mood: Good Affect: Anxious Thought Process & Associations: Other ([place] and rambling at times) Thought Content: Delusional Hallucination Type: None Delusion Type: Bizarre Suicidal Ideation: No Suicidal Plan: No Suicidal Intention: No Homicidal Ideation: No Homicidal Plan: No Homicidal Intention: No Insight: Poor Judgment: Poor Assessment and Plan - Assessment (1) Dementia with behavioral disturbance Code(s): F03.91 - Unspecified dementia with behavioral disturbance Status: Acute - Plan Plan: I have seen and examined this patient, review the documentation, I agree and concur with Dr. Gan assessment and plan. Justification for Continued Inpatient Stay: Continue psychiatric admission (1) Dementia with behavioral disturbance Qualifiers: Dementia type: unspecified type Qualified Code(s): F03.91 - Unspecified dementia with behavioral disturbance
--- NOTE | 2018-05-17 15:43 | P.PNPSY ---
Subjective Remarks: Patient seen for follow up; chart reviewed. Discussion with nursing staff reported that patient has a compliant medications, has not been attempting to elope the unit, eating and drinking well and redirectable. Patient was noted to be sitting in hospital chair noted to be, cooperative continues with baseline confusion. Patient to be tangential at times and rambling. Patient reports eating and drinking well with adequate bowel movement no physical complaints at this time. Patient denying any perceptional disturbances, continues with paranoia regarding his at times. Review of Systems All other systems reviewed negative except as stated in HPI Mental Status Examination Appearance: Appropriate Consciousness: Alert Orientation: Person Motor Activity: Normal gait Speech: Unremarkable Language: Adequate Fund of Knowledge: Inadequate Attention and Concentration: Easily distracted Memory: Impaired Mood: Good Affect: Anxious Thought Process & Associations: Other ([place] and rambling at times) Thought Content: Delusional Hallucination Type: None Delusion Type: Bizarre Suicidal Ideation: No Suicidal Plan: No Suicidal Intention: No Homicidal Ideation: No Homicidal Plan: No Homicidal Intention: No Insight: Poor Judgment: Poor Assessment and Plan - Assessment (1) Dementia with behavioral disturbance Code(s): F03.91 - Unspecified dementia with behavioral disturbance Status: Acute - Plan Plan: Patient with good behavioral control although requiring redirection, compliant with medication. Patient continues with bizarre delusions regarding his but also noted to have significant neurocognitive deficits. Patient to continue current treatment. Continue to monitor mood and behavior. Patient will require placement into a supervised setting this patient cannot be managed at home. Discharge planning in progress. Justification for Continued Inpatient Stay: At risk of further decompensation a lower level of care. (1) Dementia with behavioral disturbance Qualifiers: Dementia type: unspecified type Qualified Code(s): F03.91 - Unspecified dementia with behavioral disturbance
--- NOTE | 2018-05-17 17:53 | P.PNIM ---
Subjective Interval history: Follow-up HTN, Vtach, dementia, psychiatric issues, schizoprenia. Patient seen walking around in the hallway in the room without any difficulty. Patient seen and examined with the nurse who is able to speak and understand [place]o. Patient is speaking in [place]o and the thought does not make sense. Patient has flights of thoughts. Patient discussed about his both knee surgery but complains about the discomfort on the left knee which is a little bit swollen, however stated pain is not too bad, stated sometimes. Patient stated he had a small thing in his heart, sometimes he had pain, but now he do not have pain. Patient denies any headache or dizziness, denies any chest pain or shortness of breath, denies any nausea or vomiting, denies any diarrhea or constipation. Patient denies any fever or chills. Physical Exam Vital signs: Vital Signs 05/17/18 06:01 Temperature 98 F Pulse Rate 70 Respiratory Rate 16 Blood Pressure 156/74 H Pulse Oximetry 98 Intake & Output 05/16/18 05/17/18 05/17/18 18:59 06:59 18:59 Intake Total 720 / 720 720 / 720 Balance 720 / 720 720 / 720 Intake: Oral 720 / 720 720 / 720 Narrative: GENERAL: Well-nourished, well-developed, alert and oriented x2 with confusion in no apparent distress SKIN: Warm and dry. Bilateral knee surgical scar healed with left knee edema HEAD: Atraumatic. Normocephalic. EYES: Pupils equal and round. No scleral icterus. No injection or drainage. ENT: No nasal bleeding or discharge. Mucous membranes pink and moist. NECK: Trachea midline. No JVD. CARDIOVASCULAR: Regular rate and rhythm. RESPIRATORY: No accessory muscle use. Clear to auscultation. Breath sounds equal bilaterally. GASTROINTESTINAL: Abdomen soft, non-tender, nondistended. Hepatic and splenic margins not palpable. MUSCULOSKELETAL: Extremities without clubbing, cyanosis, or edema. No obvious deformities. Left knee edema NEUROLOGICAL: Awake and alert. No obvious cranial nerve deficits. Motor grossly within normal limits. Five out of 5 muscle strength in the arms and legs. Normal speech. PSYCHIATRIC: Appropriate mood and affect; insight and judgment normal. Results - Labs CBC & Chem 7: 05/17/18 05:30 05/17/18 05:30 Laboratory Results - last 24 hr 05/16/18 05/17/18 05/17/18 14:08 05:30 05:30 WBC 6.2 RBC 4.53 Hgb 14.2 Hct 42.4 MCV 93.5 MCH 31.4 MCHC 33.6 RDW 13.3 Plt Count 246 MPV 8.5 Neut % (Auto) 63.4 Lymph % (Auto) 22.4 [place] % (Auto) 10.4 H Eos % (Auto) 3.3 Baso % (Auto) 0.5 Neut # (Auto) 3.9 Lymph # (Auto) 1.4 [place] # (Auto) 0.6 Eos # (Auto) 0.2 Baso # (Auto) 0.0 WBC Differential . Differential Comment Auto diff final Sodium 144 Potassium 3.8 Chloride 108 H Carbon Dioxide 27.9 Anion Gap 8 BUN 20 H Creatinine 0.93 Estimated GFR 78 L Random Glucose 87 Hemoglobin A1c 5.5 Calcium 9.1 Assessment and Plan - Plan This is an 83 years old male with past Medical History of HTN, Vtach, dementia, psychiatric issues, schizoprenia,was dennis acted, recently admitted for the same problem under [place] Act, was discharged and came back after 24 hrs for the same problem. Medical team consulted for medical management Altered Mental Status increased confusion, likely related to psychiatric issues, will rule out metabolic causes -send urine for U/A, unable to obtain at this time,discussed with the nurse, will attempt to obtain sample again -CBC unremarkable -BMP: Creatinine improved from 1.43, today 0.93 Hypertension/Hx Vtach - BP still elevated -increase hydralazine dose -continue prn clonidine for sbp>160 or dbp>90 -check troponin 0.04 - ECG ordered, patient refused first attempt Dementia increasing symptom -add namenda if ok with Psychiatric team -monitor mental status Schizophrenia -management by Psychiatric Team Osteoarthritisleft knee edema History of bilateral knee surgery -As needed ice pack DVT Prophylaxis: patient ambulatory Code Status: Full code Discussed Condition With: Patient and nurse
[2018-05-17] MEDS ORDERED: hydrALAZINE 25 MG Tablet PO SCH (18:00)
[2018-05-17] MEDS: hydrALAZINE 50 MG Tablet PO SCH (18:45)
[2018-05-18] MEDS: amLODIPine 5 MG Tablet PO SCH ×2 (09:33→20:18)
[2018-05-18] MEDS: Pantoprazole Sodium 20 MG DR Tablet PO SCH ×2 (09:33→20:18)
[2018-05-18] MEDS: hydrALAZINE 50 MG Tablet PO SCH ×3 (09:33→17:49)
--- NOTE | 2018-05-18 11:59 | ECG ---
Date Performed: 05/17/2018 Time Performed: 20:28:28 PTAGE: 83 years EKG: Sinus rhythm WITH FIRST DEGREE AV BLOCK WITH OCCASIONAL VENTRICULAR PREMATURE COMPLEXES POSSIBLE RIGHT VENTRICULA R CONDUCTION DELAY LEFT ANTERIOR FASCICULAR BLOCK MODERATE VOLTAGE CRITERIA FOR LVH, CONSIDER NORMAL VARIANT NONSPECIFIC T-WAVE ABNORMALITY ABNORMAL ECG PREVIOUS TRACING : 05/08/2018 18.49 Since the previous tracing, no significant change noted DOCTOR: Vitor Saunders Interpretating Date/Time 05/18/2018 11:59:26
[2018-05-18] MEDS ORDERED: QUEtiapine 25 MG Tablet PO SCH (16:22)
--- NOTE | 2018-05-18 16:24 | P.PNPSY ---
Subjective Remarks: Patient seen for follow, chart reviewed. Discussion nursing staff reported the patient slept poorly less evening, noted to be exit seeking this morning but redirectable. Patient was found ambulating on unit noted to be calm and cooperative. Patient continues with baseline confusion and rambling throughout interview but denying any perceptual services, denying any physical complaints at this time reports eating and drinking well with no difficulty or bowel movement. Review of Systems All other systems reviewed negative except as stated in HPI Mental Status Examination Appearance: Appropriate Consciousness: Alert Orientation: Person Motor Activity: Normal gait Speech: Unremarkable Language: Adequate Fund of Knowledge: Inadequate Attention and Concentration: Easily distracted Memory: Impaired Mood: Good Affect: Anxious Thought Process & Associations: Other ([place] and rambling at times) Thought Content: Delusional Hallucination Type: None Delusion Type: Bizarre Suicidal Ideation: No Suicidal Plan: No Suicidal Intention: No Homicidal Ideation: No Homicidal Plan: No Homicidal Intention: No Insight: Poor Judgment: Poor Assessment and Plan - Assessment (1) Dementia with behavioral disturbance Code(s): F03.91 - Unspecified dementia with behavioral disturbance Status: Acute - Plan Plan: Patient continues with baseline confusion, easily redirectable, confused at times exit seeking but no behavioral disturbances or agitation. We will continue to titrate quetiapine to 25 mg a.m./75 mg at bedtime for mood stabilization and psychosis. We will continue to monitor mood and behavior. Hospitalist input appreciated. Discharge planning a progress. Justification for Continued Inpatient Stay: At risk of further decompensation a lower level care. (1) Dementia with behavioral disturbance Qualifiers: Dementia type: unspecified type Qualified Code(s): F03.91 - Unspecified dementia with behavioral disturbance
--- NOTE | 2018-05-18 18:55 | P.PNIM ---
Subjective Interval history: Follow-up HTN, Vtach, dementia, psychiatric issues, schizoprenia. Patient seen and examined walking in the hallway and the day room, denies any pain or shortness of breath. Patient denies any chest pain or shortness of breath. Patient stated everything okay. Patient speaking in [place]ic and have some flights of thoughts. Nurse denies any patient's concern. Stated blood pressure today is good. At 148/70 Physical Exam Vital signs: Vital Signs 05/18/18 05:12 Temperature 98.1 F Pulse Rate 95 H Respiratory Rate 16 Blood Pressure 148/70 H Pulse Oximetry 95 Intake & Output 05/17/18 05/18/18 05/18/18 18:59 06:59 18:59 Intake Total 720 / 720 240 / 240 Balance 720 / 720 240 / 240 Intake: Oral 720 / 720 240 / 240 Narrative: GENERAL: Well-nourished, well-developed, alert and oriented x2 with confusion in no apparent distress SKIN: Warm and dry. Bilateral knee surgical scar healed with left knee edema HEAD: Atraumatic. Normocephalic. EYES: Pupils equal and round. No scleral icterus. No injection or drainage. ENT: No nasal bleeding or discharge. Mucous membranes pink and moist. NECK: Trachea midline. No JVD. CARDIOVASCULAR: Regular rate and rhythm. RESPIRATORY: No accessory muscle use. Clear to auscultation. Breath sounds equal bilaterally. GASTROINTESTINAL: Abdomen soft, non-tender, nondistended. Hepatic and splenic margins not palpable. MUSCULOSKELETAL: Extremities without clubbing, cyanosis, or edema. No obvious deformities. Left knee edema NEUROLOGICAL: Awake and alert. No obvious cranial nerve deficits. Motor grossly within normal limits. Five out of 5 muscle strength in the arms and legs. Normal speech. PSYCHIATRIC: Flat mood and affect; insight and judgment unreliable Results - Labs CBC & Chem 7: 05/17/18 05:30 05/17/18 05:30 Assessment and Plan - Plan This is an 83 years old male with past Medical History of HTN, Vtach, dementia, psychiatric issues, schizoprenia,was dennis acted, recently admitted for the same problem under [place], was discharged and came back after 24 hrs for the same problem. Medical team consulted for medical management Altered Mental Status increased confusion, likely related to psychiatric issues, will rule out metabolic causes -send urine for U/A, unable to obtain at this time,discussed with the nurse, will attempt to obtain sample again -CBC unremarkable -BMP: Creatinine improved from 1.43, today 0.93 Hypertension/Hx Vtach - BP improved, 148/70 today, -increase hydralazine dose -continue prn clonidine for sbp>160 or dbp>90 -check troponin 0.04 - ECG ordered, patient refused first attempt -Continue monitor blood pressure Dementia increasing symptom -add namenda if ok with Psychiatric team -monitor mental status Schizophrenia -management by Psychiatric Team Osteoarthritisleft knee edema History of bilateral knee surgery -As needed ice pack DVT Prophylaxis: patient ambulatory Code Status: Full code Discussed Condition With: Patient and nurse
[2018-05-18] MEDS: LORazepam 0.5 MG Tablet PO PRN (19:53)
[2018-05-18] MEDS: QUEtiapine 25 MG Tablet PO SCH (20:18)
[2018-05-19] MEDS: hydrALAZINE 50 MG Tablet PO SCH ×3 (09:37→18:30)
[2018-05-19] MEDS: amLODIPine 5 MG Tablet PO SCH ×2 (09:39→21:11)
[2018-05-19] MEDS: Pantoprazole Sodium 20 MG DR Tablet PO SCH ×2 (09:39→21:11)
[2018-05-19] MEDS: QUEtiapine 25 MG Tablet PO SCH ×2 (10:31→21:11)
--- NOTE | 2018-05-19 11:04 | P.PNPSY ---
Subjective Remarks: Reviewed electronic medical records and discussed case with staff. Follow-up was conducted in the hallway. 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 He states that he has been sleeping well but he has been eating good. When asked how his moods been he states "I do not know". He still appears diffusely confused. Mental Status Examination Appearance: Appropriate Consciousness: Alert Orientation: Person Motor Activity: Normal gait Speech: Unremarkable Language: Adequate Fund of Knowledge: Inadequate Attention and Concentration: Easily distracted Memory: Impaired Mood: Good Affect: Anxious Thought Process & Associations: Other ([place] and rambling at times) Thought Content: Delusional Hallucination Type: None Delusion Type: Bizarre Suicidal Ideation: No Suicidal Plan: No Suicidal Intention: No Homicidal Ideation: No Homicidal Plan: No Homicidal Intention: No Insight: Poor Judgment: Poor Assessment and Plan - Assessment (1) Dementia with behavioral disturbance Code(s): F03.91 - Unspecified dementia with behavioral disturbance Status: Acute - Plan Plan: Patient will be reevaluated Monday by the attending psychiatrist. Continue with current treatment plan. Justification for Continued Inpatient Stay: Moving this patient to a less restrictive environment would likely result in decompensation. (1) Dementia with behavioral disturbance Qualifiers: Dementia type: unspecified type Qualified Code(s): F03.91 - Unspecified dementia with behavioral disturbance
--- NOTE | 2018-05-19 17:14 | P.PNIM ---
Subjective Interval history: Follow-up HTN, Vtach, dementia, psychiatric issues, schizoprenia. Patient ambulating in the hallway in the, without any difficulty. Patient seen and examined complains of pain on right abdomen stated earlier but now is better. Denies any nausea or vomiting, denies any constipation or diarrhea. Patient stated he had a bowel movement this morning. Patient denies any heartburn or palpitation at this time, denies any chest pain or shortness of breath. Patient denies any fever or chills Physical Exam Vital signs: Vital Signs 05/19/18 06:00 05/19/18 13:06 05/19/18 13:09 Temperature 98.0 F 97.8 F Pulse Rate 60 64 Respiratory Rate 20 18 Blood Pressure 136/59 L 121/59 L Pulse Oximetry 94 L 98 Intake & Output 05/18/18 05/19/18 05/19/18 18:59 06:59 18:59 Intake Total 240 / 240 Balance 240 / 240 Intake: Oral 240 / 240 Narrative: GENERAL: Well-nourished, well-developed, alert and oriented x2 with confusion in no apparent distress SKIN: Warm and dry. Bilateral knee surgical scar healed with left knee edema HEAD: Atraumatic. Normocephalic. EYES: Pupils equal and round. No scleral icterus. No injection or drainage. ENT: No nasal bleeding or discharge. Mucous membranes pink and moist. NECK: Trachea midline. No JVD. CARDIOVASCULAR: Regular rate and rhythm. RESPIRATORY: No accessory muscle use. Clear to auscultation. Breath sounds equal bilaterally. GASTROINTESTINAL: Abdomen soft, non-tender, nondistended. Hepatic and splenic margins not palpable. MUSCULOSKELETAL: Extremities without clubbing, cyanosis, or edema. No obvious deformities. Left knee edema NEUROLOGICAL: Awake and alert. No obvious cranial nerve deficits. Motor grossly within normal limits. Five out of 5 muscle strength in the arms and legs. Normal speech. PSYCHIATRIC: Flat mood and affect; insight and judgment unreliable Results - Labs CBC & Chem 7: 05/17/18 05:30 05/17/18 05:30 Assessment and Plan - Plan This is an 83 years old male with past Medical History of HTN, Vtach, dementia, psychiatric issues, schizoprenia,was dennis acted, recently admitted for the same problem under [place], was discharged and came back after 24 hrs for the same problem. Medical team consulted for medical management Altered Mental Status increased confusion, likely related to psychiatric issues, will rule out metabolic causes -send urine for U/A, unable to obtain at this time,discussed with the nurse, will attempt to obtain sample again -CBC unremarkable -BMP: Creatinine improved from 1.43, today 0.93 Hypertension/Hx Vtach - BP improving, recent BP 148/70, 136/59, 121/59 -increase hydralazine dose -continue prn clonidine for sbp>160 or dbp>90 -check troponin 0.04 - ECG: Sinus rhythm with first-degree AV block, with PVC -Continue monitor blood pressure Dementia increasing confusion confusion -continue namenda, may increase the dose if symptoms persist -monitor mental status Schizophrenia -management by Psychiatric Team Osteoarthritisleft knee edema History of bilateral knee surgery -As needed ice pack DVT Prophylaxis: patient ambulatory Code Status: full code Discussed Condition With: patient and nurse
[2018-05-19] MEDS: LORazepam 0.5 MG Tablet PO PRN (19:43)
[2018-05-20] MEDS: Pantoprazole Sodium 20 MG DR Tablet PO SCH ×2 (09:13→21:20)
[2018-05-20] MEDS: hydrALAZINE 50 MG Tablet PO SCH ×3 (09:13→17:55)
[2018-05-20] MEDS: amLODIPine 5 MG Tablet PO SCH ×2 (09:13→21:20)
[2018-05-20] MEDS: QUEtiapine 25 MG Tablet PO SCH ×2 (09:13→21:20)
--- NOTE | 2018-05-20 12:03 | P.PNPSY ---
Subjective Remarks: Reviewed electronic medical records and discussed case with staff. Follow-up was conducted in the hallway. His nurse reports he had a fall last night. She states that he attempted to pick something up from the floor and tumbled over. He is observed ambulating with no difficulty but still presents as diffusely confused. He is perseverating on obtaining $5. Mental Status Examination Appearance: Appropriate Consciousness: Alert Orientation: Person Motor Activity: Normal gait Speech: Unremarkable Language: Adequate Fund of Knowledge: Inadequate Attention and Concentration: Easily distracted Memory: Impaired Mood: Good Affect: Anxious Thought Process & Associations: Other ([place] and rambling at times) Thought Content: Delusional Hallucination Type: None Delusion Type: Bizarre Suicidal Ideation: No Suicidal Plan: No Suicidal Intention: No Homicidal Ideation: No Homicidal Plan: No Homicidal Intention: No Insight: Poor Judgment: Poor Assessment and Plan - Assessment (1) Dementia with behavioral disturbance Code(s): F03.91 - Unspecified dementia with behavioral disturbance Status: Acute - Plan Plan: Patient will be reevaluated Monday by the attending psychiatrist. Continue with current treatment plan. Justification for Continued Inpatient Stay: Moving this patient to a less restrictive environment would likely result in decompensation. (1) Dementia with behavioral disturbance Qualifiers: Dementia type: unspecified type Qualified Code(s): F03.91 - Unspecified dementia with behavioral disturbance
[2018-05-20] MEDS: LORazepam 0.5 MG Tablet PO PRN (15:51)
--- NOTE | 2018-05-20 19:07 | P.PNIM ---
Subjective Interval history: Follow-up HTN, Vtach, dementia, psychiatric issues, schizoprenia. Patient ambulatory in the hallway without any distress. Patient seen and examined, c/o right abdominal pain with no associated nausea or vomiting, Patient stated did not have bowel movement today, and do not remember when was the last time he had bowel movement. Patient denies any fever or chills, denies any chest pain or shortness of breath. Physical Exam Vital signs: Vital Signs 05/19/18 22:30 05/19/18 23:30 05/20/18 00:30 Temperature Pulse Rate 83 63 69 Respiratory Rate 18 16 16 Blood Pressure 115/60 120/58 L 128/62 Pulse Oximetry 92 L 93 L 94 L 05/20/18 01:30 05/20/18 06:07 05/20/18 12:37 Temperature 97.3 F L Pulse Rate 69 64 97 H Respiratory Rate 18 18 Blood Pressure 145/65 H 143/91 H 116/53 L Pulse Oximetry 94 L 94 L 05/20/18 17:32 Temperature 97.4 F L Pulse Rate 66 Respiratory Rate 18 Blood Pressure 155/82 H Pulse Oximetry 92 L Intake & Output 05/19/18 05/20/18 05/20/18 18:59 06:59 18:59 Intake Total 240 / 240 960 / 960 Balance 240 / 240 960 / 960 Intake: Oral 240 / 240 960 / 960 Other: # Voids 3 Narrative: GENERAL: Well-nourished, well-developed, alert and oriented x2 with confusion in no apparent distress SKIN: Warm and dry. Bilateral knee surgical scar healed with left knee edema HEAD: Atraumatic. Normocephalic. EYES: Pupils equal and round. No scleral icterus. No injection or drainage. ENT: No nasal bleeding or discharge. Mucous membranes pink and moist. NECK: Trachea midline. No JVD. CARDIOVASCULAR: Regular rate and rhythm. RESPIRATORY: No accessory muscle use. Clear to auscultation. Breath sounds equal bilaterally. GASTROINTESTINAL: Abdomen soft, non-tender, nondistended. Hepatic and splenic margins not palpable. MUSCULOSKELETAL: Extremities without clubbing, cyanosis, or edema. No obvious deformities. Left knee edema NEUROLOGICAL: Awake and alert. No obvious cranial nerve deficits. Motor grossly within normal limits. Five out of 5 muscle strength in the arms and legs. Normal speech. PSYCHIATRIC: Flat mood and affect; insight and judgment unreliable Results - Labs CBC & Chem 7: 05/17/18 05:30 05/17/18 05:30 Assessment and Plan - Plan This is an 83 years old male with past Medical History of HTN, Vtach, dementia, psychiatric issues, schizoprenia,was dennis acted, recently admitted for the same problem under [place] Act, was discharged and came back after 24 hrs for the same problem. Medical team consulted for medical management Altered Mental Status increased confusion, likely related to psychiatric issues, will rule out metabolic causes -send urine for U/A, unable to obtain at this time,discussed with the nurse, will attempt to obtain sample again -CBC unremarkable -BMP: Creatinine improved from 1.43, to 0.93 Hypertension/Hx Vtach - BP improving, recent BP 148/70, 136/59, 121/59 -increase hydralazine dose -continue prn clonidine for sbp>160 or dbp>90 -check troponin 0.04 - ECG: Sinus rhythm with first-degree AV block, with PVC -Continue monitor blood pressure Dementia increasing confusion confusion -continue namenda, may increase the dose if symptoms persist -monitor mental status Schizophrenia -management by Psychiatric Team Osteoarthritisleft knee edema History of bilateral knee surgery -As needed ice pack Abdominal Pain questionable constipation DVT Prophylaxis: patient ambulatory Code Status: full code Discussed Condition With: patient and nurses
--- NOTE | 2018-05-20 20:11 | XR ---
EXAM DATE: 05/20/2018 12:00 AM EDT AGE/SEX: 83 years / Male INDICATIONS: Abdominal pain. CLINICAL DATA: This is the patient's initial encounter. Patient reports that signs and symptoms have been present for 1 day and indicates a pain score of Nonresponsive. MEDICAL/SURGICAL HISTORY: None. None. COMPARISON: No prior exams available for comparison. FINDINGS: No dilated loops of small or large bowel. The visualized lower lungs are clear. Bilateral degenerativ e changes in the lower lumbar region. No abnormal calcifications. CONCLUSION: Benign abdomen. Electronically signed by: Orion Mcfadden MD 05/20/2018 8:10 PM EDT
[2018-05-21] MEDS: hydrALAZINE 50 MG Tablet PO SCH ×3 (08:06→17:23)
[2018-05-21] MEDS: Pantoprazole Sodium 20 MG DR Tablet PO SCH ×2 (08:06→20:23)
[2018-05-21] MEDS: QUEtiapine 25 MG Tablet PO SCH ×2 (08:06→20:24)
[2018-05-21] MEDS: amLODIPine 5 MG Tablet PO SCH ×2 (08:07→20:23)
[2018-05-21] MEDS: Lisinopril 10 MG Tablet PO SCH (08:12)
[2018-05-21] MEDS ORDERED: hydrALAZINE 25 MG Tablet PO PRN (09:00)
--- NOTE | 2018-05-21 16:34 | P.PN ---
Subjective Interval history: Follow-up visit HTN, bradycardia. Patient seen and examined today. Reports is doing well. As per nursing no acute issues overnight. Patient denies pain and discomfort. Denies SOB/ dyspnea. Denies chest pain, palpitations, headaches, dizziness. Denies fevers, chills, n/v/d. Denies dysuria. Physical Exam Vital signs: Vital Signs 05/20/18 17:32 05/21/18 05:48 05/21/18 14:10 Temperature 97.4 F L 97.9 F Pulse Rate 66 69 66 Respiratory Rate 18 16 Blood Pressure 155/82 H 143/65 H 127/56 L Pulse Oximetry 92 L 96 Intake & Output 05/20/18 05/21/18 05/21/18 18:59 06:59 18:59 Intake Total 960 / 960 0 / 0 Balance 960 / 960 0 / 0 Intake: Oral 960 / 960 0 / 0 Oral Supplement 0 / 0 Other: # Voids 3 1 Narrative: GENERAL: This is a well-nourished, well-developed patient, in no apparent distress. SKIN: Warm and dry HEENT: Normocephalic. Pupils equal round and reactive. Nose without bleeding. Airway patent. NECK: Trachea midline. CARDIOVASCULAR: Bradycardia without murmurs, gallops, or rubs. RESPIRATORY: Clear to auscultation. Breath sounds equal bilaterally. No wheezes , rales, or rhonchi. GASTROINTESTINAL: Abdomen soft, non-tender, nondistended. Bowel Sounds normoactive x4. MUSCULOSKELETAL: Extremities without clubbing, cyanosis, or edema. NEUROLOGICAL: Awake and alert. Confused. No focal neuro deficit. Moves all extremities. Normal speech. Results - Labs CBC & Chem 7: 05/17/18 05:30 05/17/18 05:30 - Imaging Impressions Abdomen X-Ray 05/20/18 00:00 CONCLUSION: Benign abdomen. Assessment and Plan - Plan 83 years old male with past Medical History of HTN, Vtach, dementia, psychiatric issues, schizoprenia,was dennis acted, recently admitted for the same problem under [place] Act, was discharged and came back after 24 hrs for the same problem. Medical team consulted for medical management Altered Mental Status Increased confusion, likely related to psychiatric issues, will rule out metabolic causes -Unable to obtain UA, but denies any symptomatology -CBC unremarkable -BMP, Creatinine improved from 1.43, to 0.93 Hypertension/Hx Vtach Bradycardia -Change hydralazine dose BID -DC clonidine, hydralazine as needed -Troponin 0.04 -ECG, Sinus rhythm with first-degree AV block, with PVC -Restart lisinopril, continue Norvasc. Dementia -continue namenda, may increase the dose if symptoms persist -monitor mental status Schizophrenia -management by Psychiatric Team Osteoarthritis, left knee edema History of bilateral knee surgery -As needed ice pack Abdominal Pain -Possible constipation. PRN bowel regimen. -States abdominal pain is improved. DVT Prophylaxis patient ambulatory Stable from Hospitalist standpoint. We will sign off. Reconsult as needed. Thank you. Code Status: Full code Discussed Condition With: Patient, nursing Discharge Planning: DC disposition by primary team
--- NOTE | 2018-05-21 16:53 | P.PNPSY ---
Subjective Remarks: Patient seen for follow-up, chart reviewed. Discussion with nursing staff reported that patient continues with confusion, social on the unit, no behavioral disturbances. Patient found on the unit interacting with staff. Patient states that he is feeling fine with no physical complaints, noted to be irritable with account underwriter, rambling at times. Patient continues with paranoia regarding his but denying any depressed mood or perceptual disturbances. Review of Systems All other systems reviewed negative except as stated in HPI Mental Status Examination Appearance: Appropriate Consciousness: Alert Orientation: Person Motor Activity: Normal gait Speech: Unremarkable Language: Adequate Fund of Knowledge: Inadequate Attention and Concentration: Easily distracted Memory: Impaired Mood: Good Affect: Anxious Thought Process & Associations: Other ([place] and rambling at times) Thought Content: Delusional Hallucination Type: None Delusion Type: Paranoid Suicidal Ideation: No Suicidal Plan: No Suicidal Intention: No Homicidal Ideation: No Homicidal Plan: No Homicidal Intention: No Insight: Poor Judgment: Poor Assessment and Plan - Assessment (1) Dementia with behavioral disturbance Code(s): F03.91 - Unspecified dementia with behavioral disturbance Status: Acute - Plan Plan: Patient continues with paranoia, at times attempting to exit seek but redirectible. Patient continues with baseline confusion. Increase quetiapine to 50mg PO BID, continue rest of medications, encourage patient to maintain hygiene. Monitor mood and behavior. Discharge planning in progress. Justification for Continued Inpatient Stay: At risk of further decompensation at lower level care. (1) Dementia with behavioral disturbance Qualifiers: Dementia type: unspecified type Qualified Code(s): F03.91 - Unspecified dementia with behavioral disturbance
[2018-05-22] MEDS: LORazepam 0.5 MG Tablet PO PRN (01:59)
[2018-05-22] MEDS: amLODIPine 5 MG Tablet PO SCH ×3 (08:50→20:54)
[2018-05-22] MEDS: Pantoprazole Sodium 20 MG DR Tablet PO SCH ×2 (08:51→20:04)
[2018-05-22] MEDS: QUEtiapine 25 MG Tablet PO SCH ×2 (08:51→20:05)
[2018-05-22] MEDS: hydrALAZINE 50 MG Tablet PO SCH ×3 (08:52→17:27)
[2018-05-22] MEDS: Lisinopril 10 MG Tablet PO SCH (08:52)
--- NOTE | 2018-05-22 16:27 | P.PNPSY ---
Subjective Remarks: Patient seen for follow-up, chart reviewed. Discussion with nursing staff reported that patient patient continues with baseline confusion, noted to be very social on the unit but at times having episodes of crying. Patient was found sitting in hospital chair speaking with another patient continues to have some disorganization, continues with baseline confusion. Patient reports tolerating medications well, denies any difficulty with appetite or bowel movement. Patient denies any physical complaints at this time. Review of Systems All other systems reviewed negative except as stated in HPI Mental Status Examination Appearance: Appropriate Consciousness: Alert Orientation: Person Motor Activity: Normal gait Speech: Unremarkable Language: Adequate Fund of Knowledge: Inadequate Attention and Concentration: Easily distracted Memory: Impaired Mood: Good Affect: Appropriate Thought Process & Associations: Other ([place] and rambling at times) Thought Content: Delusional Hallucination Type: None Delusion Type: Paranoid Suicidal Ideation: No Suicidal Plan: No Suicidal Intention: No Homicidal Ideation: No Homicidal Plan: No Homicidal Intention: No Insight: Poor Judgment: Poor Assessment and Plan - Assessment (1) Dementia with behavioral disturbance Code(s): F03.91 - Unspecified dementia with behavioral disturbance Status: Acute - Plan Plan: Patient noted to be less perseverative on delusions of cheating on him but at times noted to be dysphoric and with episodes of crying as noted by staff. Patient continues with baseline confusion. Will consider adding antidepressant if patient continues to be noted to be dysphoric although denying any depressed mood. Continue rest of medications. We will continue to monitor mood and behavior. Discharge planning in progress. Justification for Continued Inpatient Stay: At risk of further decompensation at lower level care. (1) Dementia with behavioral disturbance Qualifiers: Dementia type: unspecified type Qualified Code(s): F03.91 - Unspecified dementia with behavioral disturbance
[2018-05-23] MEDS: amLODIPine 5 MG Tablet PO SCH ×2 (09:00→21:45)
[2018-05-23] MEDS: Pantoprazole Sodium 20 MG DR Tablet PO SCH ×2 (09:00→21:46)
[2018-05-23] MEDS: QUEtiapine 25 MG Tablet PO SCH ×2 (09:00→21:45)
[2018-05-23] MEDS: Lisinopril 10 MG Tablet PO SCH (09:00)
[2018-05-23] MEDS: hydrALAZINE 50 MG Tablet PO SCH ×3 (09:00→17:28)
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
[2018-05-23] MEDS: LORazepam 0.5 MG Tablet PO PRN (21:46)
[2018-05-24] MEDS: Lisinopril 10 MG Tablet PO SCH (09:21)
[2018-05-24] MEDS: QUEtiapine 25 MG Tablet PO SCH ×2 (09:21→20:09)
[2018-05-24] MEDS: Pantoprazole Sodium 20 MG DR Tablet PO SCH ×2 (09:21→20:09)
[2018-05-24] MEDS: amLODIPine 5 MG Tablet PO SCH ×2 (09:21→20:09)
[2018-05-24] MEDS: hydrALAZINE 50 MG Tablet PO SCH ×3 (09:22→17:29)
--- NOTE | 2018-05-24 12:33 | P.TTN ---
- Patient Problems Problems: 1. Discharge planning 2. Medication compliance 3. Knowledge deficit 4. Lack of coping skills - Progress Toward Goals Provider Present: Dr. Kath Foster, Dr. Kiara Gan Provider Input: Remain for further stabilization. Work with Family on Placement. 05-23-18: Going to Court: Remain for further stabilization: Needs Placement. Nurse(s) Present: Fariba Nurse Input: Non-Compliant with medications, confused, requires redirection. Not sleeping. 05/23/18: Appropropriate with staff, Treatment cooperative, med compliant, tearful at times. Psychiatric Counselors Present: Sarah Schaefer [facility] Psychiatric Therapist Input: Counselor will meet with patient to discuss a safe discharge plan. 05/23/18: Needs placement Group Spec/RT/OT/SIMMS Present: BERE Dyson, Cali Reyes, OT Group Spec/RT/OT/SIMMS Input: Patient will attend the group activities with encouragement. Pt is somewhat exit seeking. 05/23/18: Pt attends select group activities with encouragement. - Documentation Scribe: Kyra Mosqueda Teaching Recipient: Patient
[2018-05-24] MEDS: LORazepam 0.5 MG Tablet PO PRN (20:08)
--- NOTE | 2018-05-24 20:55 | P.PNPSY ---
Subjective Remarks: Patient seen for follow-up, chart reviewed. Discussion with nursing staff reported that patient continues to have episodes of crying on unit but no behavioral disturbances. Patient presented to mental health court where patient continues with confusion not understanding why he will not be sent home. Patient later found on the unit after court noted B, cooperative continues with baseline confusion but slightly noted with sad affect. Patient denies any depressed mood denies any perceptional services denies any physical complaints at this time. Patient reports eating and drinking well. Review of Systems All other systems reviewed negative except as stated in HPI Mental Status Examination Appearance: Appropriate Consciousness: Alert Orientation: Person Motor Activity: Normal gait Speech: Unremarkable Language: Adequate Fund of Knowledge: Inadequate Attention and Concentration: Easily distracted Memory: Impaired Mood: Good Affect: Appropriate Thought Process & Associations: Other ([place] and rambling at times) Thought Content: Delusional Hallucination Type: None Delusion Type: Paranoid Suicidal Ideation: No Suicidal Plan: No Suicidal Intention: No Homicidal Ideation: No Homicidal Plan: No Homicidal Intention: No Insight: Poor Judgment: Poor Assessment and Plan - Assessment (1) Dementia with behavioral disturbance Code(s): F03.91 - Unspecified dementia with behavioral disturbance Status: Acute - Plan Plan: Patient noted with lessening of intensity of paranoid delusions no longer endorsing this continues with baseline confusion. patient continues to have noted episodes of crying we will consider starting patient antidepressant and will reviewed it was patient's who was currently healthcare surrogate. We will continue current treatment. We will decrease Benadryl 25 mg p.o. at bedtime S patient was noted to be very somnolent with 50 mg dose, increased Seroquel in the evening. Continue to monitor mood and behavior. Discharge planning in progress. Justification for Continued Inpatient Stay: At risk of further decompensation at lower level care. (1) Dementia with behavioral disturbance Qualifiers: Dementia type: unspecified type Qualified Code(s): F03.91 - Unspecified dementia with behavioral disturbance
[2018-05-25] MEDS: QUEtiapine 25 MG Tablet PO SCH ×2 (08:44→21:56)
[2018-05-25] MEDS: hydrALAZINE 50 MG Tablet PO SCH ×3 (08:44→17:52)
[2018-05-25] MEDS: amLODIPine 5 MG Tablet PO SCH ×2 (08:44→21:55)
[2018-05-25] MEDS: Pantoprazole Sodium 20 MG DR Tablet PO SCH ×2 (08:44→21:55)
[2018-05-25] MEDS: Lisinopril 10 MG Tablet PO SCH (08:45)
[2018-05-25] MEDS: LORazepam 0.5 MG Tablet PO PRN ×2 (14:53→21:55)
--- NOTE | 2018-05-25 18:02 | P.PNPSY ---
Subjective Remarks: Patient seen for follow-up, chart reviewed. Discussion with nursing staff reported that patient receive ETO x1 yesterday which she received Ativan 0.5 IM and Benadryl IM, continues to be exit seeking at times especially after visit with . Patient was found heavily on unit noted B, cooperative. She is a baseline confusion stating that he is devoid as the loss of the place. Patient states that he is at times not allowed to go through certain doors. Later patient was voicing concern of wanting to reach his daughter but then when offered to assist him with obtaining it later he states that he no longer needed. Patient continues with episodes of crying particularly when he wants to go home with his have the visit. The patient denies any depressed mood patient at times noted to have crying episodes. Review of Systems All other systems reviewed negative except as stated in HPI Mental Status Examination Appearance: Appropriate Consciousness: Alert Orientation: Person Motor Activity: Normal gait Speech: Unremarkable Language: Adequate Fund of Knowledge: Inadequate Attention and Concentration: Easily distracted Memory: Impaired Mood: Good Affect: Appropriate Thought Process & Associations: Other ([place] and rambling at times) Thought Content: Delusional Hallucination Type: None Delusion Type: Paranoid Suicidal Ideation: No Suicidal Plan: No Suicidal Intention: No Homicidal Ideation: No Homicidal Plan: No Homicidal Intention: No Insight: Poor Judgment: Poor Assessment and Plan - Assessment (1) Dementia with behavioral disturbance Code(s): F03.91 - Unspecified dementia with behavioral disturbance Status: Acute - Plan Plan: Patient continues to have baseline confusion, continues to be exit seeking at times, noted to have episodes of crying particularly after being visited by and he is unable to return home with her. We will consider starting low- dose antidepressant as patient has been having more frequent episodes of crying at times with staff. We will have to contact for consent for this. We will consider starting sertraline 25 mg p.o. daily. Continue current treatment. Continue to monitor mood and behavior. Discharge planning a progress. Justification for Continued Inpatient Stay: At risk of further decompensation at lower level care. (1) Dementia with behavioral disturbance Qualifiers: Dementia type: unspecified type Qualified Code(s): F03.91 - Unspecified dementia with behavioral disturbance
[2018-05-26] MEDS: hydrALAZINE 50 MG Tablet PO SCH ×3 (08:02→17:51)
[2018-05-26] MEDS: Pantoprazole Sodium 20 MG DR Tablet PO SCH ×2 (08:02→20:42)
[2018-05-26] MEDS: QUEtiapine 25 MG Tablet PO SCH ×2 (08:02→20:41)
[2018-05-26] MEDS: amLODIPine 5 MG Tablet PO SCH ×2 (08:02→20:43)
[2018-05-26] MEDS: Lisinopril 10 MG Tablet PO SCH (08:02)
--- NOTE | 2018-05-26 10:56 | P.PNPSY ---
Subjective Remarks: Reviewed electronic medical records and discussed case with staff. Follow-up was conducted in the hallway. He was found sitting talking with the vocational psychologist. He continues to be diffusely confused. Has not had any behavioral disturbances although they did report he was a little upset earlier today again over discharge and missing his family. They report his appetite is been good. Mental Status Examination Appearance: Appropriate Consciousness: Alert Orientation: Person Motor Activity: Normal gait Speech: Unremarkable Language: Adequate Fund of Knowledge: Inadequate Attention and Concentration: Easily distracted Memory: Impaired Mood: Good Affect: Appropriate Thought Process & Associations: Other ([place] and rambling at times) Thought Content: Delusional Hallucination Type: None Delusion Type: Paranoid Suicidal Ideation: No Suicidal Plan: No Suicidal Intention: No Homicidal Ideation: No Homicidal Plan: No Homicidal Intention: No Insight: Poor Judgment: Poor Assessment and Plan - Assessment (1) Dementia with behavioral disturbance Code(s): F03.91 - Unspecified dementia with behavioral disturbance Status: Acute - Plan Plan: Patient will be reevaluated Monday by the attending psychiatrist. Continue with current treatment plan. Justification for Continued Inpatient Stay: Moving this patient to a less restrictive environment would likely result in decompensation. (1) Dementia with behavioral disturbance Qualifiers: Dementia type: unspecified type Qualified Code(s): F03.91 - Unspecified dementia with behavioral disturbance
[2018-05-26] MEDS: LORazepam 0.5 MG Tablet PO PRN (21:34)
[2018-05-27] MEDS: Lisinopril 10 MG Tablet PO SCH (07:59)
[2018-05-27] MEDS: QUEtiapine 25 MG Tablet PO SCH ×3 (07:59→21:49)
[2018-05-27] MEDS: hydrALAZINE 50 MG Tablet PO SCH ×3 (07:59→17:16)
[2018-05-27] MEDS: Pantoprazole Sodium 20 MG DR Tablet PO SCH ×2 (07:59→21:49)
[2018-05-27] MEDS: amLODIPine 5 MG Tablet PO SCH ×2 (07:59→21:49)
--- NOTE | 2018-05-27 08:03 | P.PNPSY ---
Subjective Remarks: Reviewed electronic medical records and discussed case with staff. Follow-up was conducted in the dayroom, patient is eating breakfast. He is preoccupied with discharge. Per nursing he is medication compliant and he is cooperative. No behavioral concerns. He engages in conversation and is easily directed. Review of Systems All other systems reviewed negative except as stated in HPI Mental Status Examination Appearance: Appropriate Consciousness: Alert Orientation: Person Motor Activity: Normal gait Speech: Unremarkable Language: Adequate Fund of Knowledge: Inadequate Attention and Concentration: Easily distracted Memory: Impaired Mood: Good Affect: Appropriate Thought Process & Associations: Other ([place] and rambling at times) Thought Content: Delusional Hallucination Type: None Delusion Type: Paranoid Suicidal Ideation: No Suicidal Plan: No Suicidal Intention: No Homicidal Ideation: No Homicidal Plan: No Homicidal Intention: No Insight: Poor Judgment: Poor Assessment and Plan - Assessment (1) Dementia Code(s): F03.90 - Unspecified dementia without behavioral disturbance Status: Acute - Plan Plan: Patient will be reevaluated Monday by the attending psychiatrist. Continue with current treatment plan. Justification for Continued Inpatient Stay: Moving patient to a less restrictive environment may result in his decompensation.
[2018-05-27] MEDS: LORazepam 0.5 MG Tablet PO PRN (21:50)
[2018-05-28] MEDS: amLODIPine 5 MG Tablet PO SCH ×2 (08:26→21:24)
[2018-05-28] MEDS: Pantoprazole Sodium 20 MG DR Tablet PO SCH ×2 (08:26→21:23)
[2018-05-28] MEDS: QUEtiapine 25 MG Tablet PO SCH ×2 (08:27→21:23)
[2018-05-28] MEDS: hydrALAZINE 50 MG Tablet PO SCH ×3 (08:27→18:01)
[2018-05-28] MEDS: Lisinopril 10 MG Tablet PO SCH (08:27)
--- NOTE | 2018-05-28 13:12 | P.TTN ---
- Patient Problems Problems: 1. Discharge planning 2. Medication compliance 3. Knowledge deficit 4. Lack of coping skills - Progress Toward Goals Provider Present: Dr. Kath Foster, Dr. Kiara Gan Provider Input: 05/28/18: Pt, with family involvement, has become placement challenge, pt requires locked unit (per his elopement tendencies) and is at [facility] level and has assets without financial support to afford [facility], pt primary language is Yakut. Remain for further stabilization. Work with Family on Placement. 05-23-18: Going to Court: Remain for further stabilization: Needs Placement. Nurse(s) Present: Fariba Nurse Input: Non-Compliant with medications, confused, requires redirection. Not sleeping. 05/23/18: Appropropriate with staff, Treatment cooperative, med compliant, tearful at times. Psychiatric Counselors Present: Sarah Schaefer [facility] Psychiatric Therapist Input: 05/28: Sarah to f/u with placement options, including family input for home or placement. Counselor will meet with patient to discuss a safe discharge plan. 05/23/18: Needs placement Group Spec/RT/OT/SIMMS Present: BERE Dyson, Cali Reyes, OT Group Spec/RT/OT/SIMMS Input: 05/28: pt unable to tolerate entire groups, he is elopement risk. Patient will attend the group activities with encouragement. Pt is somewhat exit seeking. 05/23/18: Pt attends select group activities with encouragement. - Discharge Plan 05/28/18: Pt, with family involvement, has become placement challenge, pt requires locked unit (per his elopement tendencies) and is at VISHNU level and has assets without financial support to afford [facility], pt primary language is Yakut. - Documentation Scribe: Kyra Mosqueda Teaching Recipient: Patient
[2018-05-28 16:16] LABS: Troponin I 0.03 ng/mL (0.02-0.05)
--- NOTE | 2018-05-28 16:25 | P.PNPSY ---
Subjective Remarks: Patient seen for follow-up, chart reviewed. Discussion with nursing staff reported that patient compliant medications, had receive Benadryl last evening and slept well with no behavioral disturbances. Patient was found on the unit noted B, cooperative continues with baseline confusion and states to check writer " you live here to now?" Patient denies any physical complaints at this time reports eating and drinking well and having slept well last night. Patient noted to have some paranoia toward Dr. Foster but did not elaborate. Patient later presented to nursing staff reported chest pain which EKG and troponins were ordered stat along with hospitalist consult. Review of Systems All other systems reviewed negative except as stated in HPI Mental Status Examination Appearance: Appropriate Consciousness: Alert Orientation: Person Motor Activity: Normal gait Speech: Unremarkable Language: Adequate Fund of Knowledge: Inadequate Attention and Concentration: Easily distracted Memory: Impaired Mood: Good Affect: Appropriate Thought Process & Associations: Other ([place] and rambling at times) Thought Content: Delusional Hallucination Type: None Delusion Type: Paranoid Suicidal Ideation: No Suicidal Plan: No Suicidal Intention: No Homicidal Ideation: No Homicidal Plan: No Homicidal Intention: No Insight: Poor Judgment: Poor Assessment and Plan - Assessment (1) Dementia with behavioral disturbance Code(s): F03.91 - Unspecified dementia with behavioral disturbance Status: Acute - Plan Plan: Patient this time continues with confusion, no behavioral disturbances, slept well last evening. Patient reported chest pain and stat EKG and troponins were ordered along with request hospitalist consult. We will continue current treatment. Continue to monitor mood and behavior. Discharge planning a progress. Justification for Continued Inpatient Stay: At risk of further decompensation at lower level care. (1) Dementia with behavioral disturbance Qualifiers: Dementia type: unspecified type Qualified Code(s): F03.91 - Unspecified dementia with behavioral disturbance
[2018-05-28 16:28] LABS: CKMB Percent 1.5 % (0.0-4.0)
--- NOTE | 2018-05-28 17:28 | P.PNIM ---
Subjective Interval history: The pt complained of chest pain earlier in the day. He was ambulating well. He was not in distress. Nursing was at the bedside. Breathing comfortably. Speaking [place] but confused per nursing. Physical Exam Vital signs: Vital Signs 05/27/18 17:30 05/27/18 20:00 05/28/18 06:00 Temperature 97.8 F 98.9 F Pulse Rate 52 L 64 67 Respiratory Rate 18 20 16 Blood Pressure 131/63 128/57 L 170/73 H Pulse Oximetry 94 L 94 L 94 L 05/28/18 14:18 05/28/18 15:26 Temperature 98.1 F 97.5 F L Pulse Rate 70 76 Respiratory Rate 16 18 Blood Pressure 128/60 143/67 H Pulse Oximetry 98 95 Intake & Output 05/27/18 05/28/18 05/28/18 18:59 06:59 18:59 Intake Total 0 / 0 Balance 0 / 0 Weight 68.6 kg Intake: Oral 0 / 0 Oral Supplement 0 / 0 Other: # Voids 2 Narrative: GENERAL: This is a well-nourished, well-developed patient, in no apparent distress. SKIN: Warm and dry HEENT: Normocephalic. Pupils equal round and reactive. Nose without bleeding. Airway patent. NECK: Trachea midline. CARDIOVASCULAR: Regular rate, systolic murmur appreciated. RESPIRATORY: Clear to auscultation. Breath sounds equal bilaterally. No wheezes , rales, or rhonchi. GASTROINTESTINAL: Abdomen soft, non-tender, nondistended. Bowel Sounds normoactive x4. MUSCULOSKELETAL: Extremities without clubbing, cyanosis, or edema. NEUROLOGICAL: Awake and alert. Confused. No focal neuro deficit. Moves all extremities. Normal speech. Results - Labs CBC & Chem 7: 05/17/18 05:30 05/17/18 05:30 Laboratory Results - last 24 hr 05/28/18 15:29 Total Creatine Kinase 332 H CK-MB (CK-2) 5.0 H CK-MB (CK-2) % 1.5 Troponin I 0.03 Assessment and Plan - Plan 83 years old male with past Medical History of HTN, Vtach, dementia, psychiatric issues, schizophrenia,was dennis acted, recently admitted for the same problem under [place], was discharged and came back after 24 hrs for the same problem. Medical team consulted for medical management Altered Mental Status Increased confusion, likely related to psychiatric issues, will rule out metabolic causes -Unable to obtain UA, but denies any symptomatology -CBC unremarkable -BMP, Creatinine improved from 1.43, to 0.93 Hypertension/Hx Vtach/Chest pain Had chest pain 05/28. EKG without change from prior studies. Troponin 0.03, down from 0.04 earlier in admission. -trend trops. -EKG in AM. -cardiology consult as has a history of CAD and V tach. Had cath in 2013. -DC clonidine, hydralazine as needed -Restart lisinopril, continue Norvasc. Continue hydralazine. -check electrolytes. Dementia -continue namenda, may increase the dose if symptoms persist -monitor mental status Schizophrenia -management by Psychiatric Team Osteoarthritis, left knee edema History of bilateral knee surgery -As needed ice pack Abdominal Pain -Possible constipation. PRN bowel regimen. -States abdominal pain is improved. DVT Prophylaxis patient ambulatory
[2018-05-28 21:56] LABS: Calcium 9.6 mg/dL (8.5-10.1); Carbon Dioxide 24.1 meq/L (21.0-32.0); Magnesium 1.6 mg/dL (1.5-2.5); Potassium 3.7 meq/L (3.5-5.1)
[2018-05-28 22:01] LABS: Troponin I 0.02 ng/mL (0.02-0.05)
[2018-05-29] MEDS: Lisinopril 10 MG Tablet PO SCH (09:00)
[2018-05-29] MEDS: Pantoprazole Sodium 20 MG DR Tablet PO SCH ×2 (09:00→20:50)
[2018-05-29] MEDS: hydrALAZINE 50 MG Tablet PO SCH ×3 (09:00→18:25)
[2018-05-29] MEDS: QUEtiapine 25 MG Tablet PO SCH ×2 (09:00→20:50)
[2018-05-29] MEDS: amLODIPine 5 MG Tablet PO SCH ×2 (09:00→20:50)
--- NOTE | 2018-05-29 15:35 | MB ---
cc: Alfred Knight MD DATE: 05/29/2018 REASON FOR CONSULTATION: Evaluation of chest pain. HISTORY OF PRESENT ILLNESS: Mayur Brooks is an 83-year-old man who was previously seeing my colleague, Dr. Cote. The patient is known to have coronary artery disease. The patient had an episode of chest pain the day before last. Dr. Bell saw the patient and obtained this history and consulted me. The patient is known to have significant coronary disease. He has total occlusion of his right coronary artery and total occlusion of the major obtuse marginal branch of the circumflex artery. Both of these vessels have collaterals. He had moderate LAD disease with a negative FFR on the last catheterization from 02/2014. The patient is now admitted to the psychiatric lo and has been diagnosed with dementia. I obtained this history from Dr. Gan, who speaks Latvian. The patient rambled considerably, making history difficult. The patient did have an episode of chest pain 2 days ago in the lower chest that lasted minutes. It is somewhat unlike what he has had in the past in that he was not doing anything when it came on. He has had no chest pain since then. The patient has had angina before and has been on a regimen consisting of amlodipine and Imdur. He does not have Imdur prescribed at this admission, so I have reordered it. He has been on beta blockers in the past, but has had problems tolerating 50 b.i.d. or 25 b.i.d. due to bradycardia, but he is on no beta isidra at all currently. 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 Bell. PAST MEDICAL HISTORY: Includes coronary artery disease, arrhythmias as described above, esophageal reflux, hyperlipidemia, hypertension, previous vasovagal syncope. MEDICATIONS: He is currently on amlodipine 10 mg daily. He is ordered Hydralazine 50 t.i.d., Lisinopril 10 mg. He is not currently prescribed aspirin. He is receiving a statin. ALLERGIES: NONE. PAST SURGICAL HISTORY: Includes hernia repair and bilateral knee replacements. PHYSICAL EXAMINATION: GENERAL: Elderly man, in no acute distress. VITAL SIGNS: Charted. He has had some intermittent hypertension. HEENT: Unremarkable. NECK: No JVD. No bruits. CHEST: Clear to auscultation. CARDIOVASCULAR: PMI seems laterally displaced near the anterior axillary line. There is a normal S1, S2. Regular rate and rhythm. No murmurs or gallops. ABDOMEN: Soft, nontender. No masses or organomegaly. EXTREMITIES: No clubbing, cyanosis or edema. BACK: Notable for mild kyphosis. His troponins are negative. LABORATORY DATA: His EKG shows sinus rhythm, left anterior fascicular block, incomplete right bundle branch block and PACs. Troponin was negative x3. Creatinine normal. Magnesium 1.6. ASSESSMENT AND PLAN: This is an 83-year-old male with significant coronary disease. He has had chest pain, most likely ischemia. He has total occlusion of the major circumflex marginal branch and right coronary artery with moderate disease of the LAD. It is not too surprising that he might experience angina under stressful situations. He is currently not on his nitrate. PLAN: I am going to re-add Imdur 30 mg daily. I am also going to add a very small dose of Toprol-XL 12.5 daily mg daily to help relieve his ischemia. I will be available as needed. Followup with Dr. Cote after discharge. Thank you very much for asking me to see him. MD ANDREW Flor/roxy/adrianna , 11:37 AM , 11:46 AM
--- NOTE | 2018-05-29 15:58 | P.PNPSY ---
Subjective Remarks: Patient seen for follow up; chart reviewed. Discussion with nursing staff that patient continues with baseline confusion no behavioral disturbances. Patient was found ambulating on unit noted B, cooperative. Patient denies any chest pain today but states he had history of cardiac issues in the past which he had cardiac catheterization done. Patient reports having slept well probably eating and drinking difficulty or bowel movement. Patient state he has been off her meals and continue to be noted with baseline confusion. Review of Systems All other systems reviewed negative except as stated in HPI Mental Status Examination Appearance: Appropriate Consciousness: Alert Orientation: Person Motor Activity: Normal gait Speech: Unremarkable Language: Adequate Fund of Knowledge: Inadequate Attention and Concentration: Easily distracted Memory: Impaired Mood: Good Affect: Appropriate Thought Process & Associations: Other ([place] and rambling at times) Thought Content: Delusional Hallucination Type: None Delusion Type: Paranoid Suicidal Ideation: No Suicidal Plan: No Suicidal Intention: No Homicidal Ideation: No Homicidal Plan: No Homicidal Intention: No Insight: Poor Judgment: Poor Assessment and Plan - Assessment (1) Dementia with behavioral disturbance Code(s): F03.91 - Unspecified dementia with behavioral disturbance Status: Acute - Plan Plan: Patient continues with baseline confusion, no behavioral disturbances no recurrence of chest pain consult input appreciated. We will continue current treatment. We will continue to monitor mood and behavior. Discharge planning a progress. Justification for Continued Inpatient Stay: At risk of further decompensation at lower level care. (1) Dementia with behavioral disturbance Qualifiers: Dementia type: unspecified type Qualified Code(s): F03.91 - Unspecified dementia with behavioral disturbance
--- NOTE | 2018-05-29 16:22 | P.PNIM ---
Subjective Interval history: Follow-up HTN, Vtach, dementia, psychiatric issues, schizoprenia. Patient ambulating in the hallway without difficulty. Patient seen and examined, denies any chest pain or shortness of breath. Patient denies any pain or discomfort, denies any nausea or vomiting, denies any abdominal pain, diarrhea or constipation. Patient denies any fever or chills. Nurse reported no acute complaints, stated patient is more coherent today and making more sense with his conversation. Physical Exam Vital signs: Vital Signs 05/28/18 18:24 05/29/18 06:00 Temperature 98.4 F 97.3 F L Pulse Rate 67 62 Respiratory Rate 17 15 Blood Pressure 139/60 163/73 H Pulse Oximetry 94 L 94 L Intake & Output 05/28/18 05/29/18 05/29/18 18:59 06:59 18:59 Intake Total 720 / 720 340 / 340 Balance 720 / 720 340 / 340 Intake: Oral 720 / 720 240 / 240 Oral Supplement 100 / 100 Other: # Voids 3 2 Narrative: GENERAL: Well-developed, well-nourished, in no apparent distress SKIN: Warm and dry. HEAD: Atraumatic. Normocephalic. EYES: Pupils equal and round. No scleral icterus. No injection or drainage. ENT: No nasal bleeding or discharge. Mucous membranes pink and moist. NECK: Trachea midline. No JVD. CARDIOVASCULAR: Regular rate and rhythm. RESPIRATORY: No accessory muscle use. Clear to auscultation. Breath sounds equal bilaterally. GASTROINTESTINAL: Abdomen flat soft, non-tender, nondistended. MUSCULOSKELETAL: Extremities without clubbing, cyanosis, or edema. No obvious deformities. NEUROLOGICAL: Awake and alert. No obvious cranial nerve deficits. Motor grossly within normal limits. Five out of 5 muscle strength in the arms and legs. Normal speech. PSYCHIATRIC: Appropriate mood and affect; insight and judgment unreliable Results - Labs CBC & Chem 7: 05/17/18 05:30 05/28/18 21:14 Laboratory Results - last 24 hr 05/28/18 05/28/18 05/29/18 15:29 21:14 05:55 Sodium 140 Potassium 3.7 Chloride 107 Carbon Dioxide 24.1 Anion Gap 9 BUN 22 H Creatinine 1.15 Estimated GFR 61 L Random Glucose 158 H Calcium 9.6 Magnesium 1.6 Total Creatine Kinase 332 H CK-MB (CK-2) 5.0 H CK-MB (CK-2) % 1.5 Troponin I 0.03 0.02 0.03 Assessment and Plan - Assessment (1) Chest pain Code(s): R07.9 - Chest pain, unspecified Status: Acute (2) CAD (coronary artery disease) Code(s): I25.10 - Atherosclerotic heart disease of [place] coronary artery without angina pectoris Status: Acute (3) Hypertension Code(s): I10 - Essential (primary) hypertension Status: Acute (4) Hyperlipidemia Code(s): E78.5 - Hyperlipidemia, unspecified Status: Acute (5) Dementia with behavioral disturbance Code(s): F03.91 - Unspecified dementia with behavioral disturbance Status: Acute - Plan This is an 83 years old male with past Medical History of HTN, Vtach, dementia, psychiatric issues, schizoprenia,was [place] acted, recently admitted for the same problem under [place], was discharged and came back after 24 hrs for the same problem. Medical team consulted for medical management Chest Pain/CAD Hypertension/Hx Vtach Bradycardia - BP improving, recent BP 148/70, 136/59, 121/59 -increase hydralazine dose -continue prn clonidine for sbp>160 or dbp>90 -rechecked troponin was 0.03, was troponin 0.04 in earlier admission - ECG sinus rhythm, left anterior fascicular block, incomplete right bundle branch block and PAC's -Continue monitor blood pressure -Cardiology consulted, appreciate recommendation, started on Imdur and toprol XL low dose -monitor HR and BP, patient have recent bradycardic episode in early admission - no chest pain or SOB today Altered Mental Status increased confusion, likely related to psychiatric issues, will rule out metabolic causes -send urine for U/A, unable to obtain at this time,discussed with the nurse, will attempt to obtain sample again -CBC unremarkable -BMP: Creatinine improved from 1.43, to 0.93 Dementia increasing confusion -continue Namenda, may increase the dose if symptoms persist -monitor mental status Schizophrenia -management by Psychiatric Team Osteoarthritisleft knee edema History of bilateral knee surgery -As needed ice pack Abdominal Pain- resolved questionable constipation -continue stool softener DVT Prophylaxis: patient ambulatory Code Status: full code Discussed Condition With: patient and nurse (5) Dementia with behavioral disturbance Qualifiers: Dementia type: unspecified type Qualified Code(s): F03.91 - Unspecified dementia with behavioral disturbance
--- NOTE | 2018-05-29 20:28 | ECG ---
Date Performed: 05/28/2018 Time Performed: 14:50:52 PTAGE: 83 years EKG: Sinus rhythm PREVIOUS TRACING : 05/17/2018 20.28 Compared to previous tracing, presently present PVC's are no longer present. DOCTOR: Terrell Rhodes Interpretating Date/Time 05/29/2018 20:27:41
[2018-05-30 05:36] VITALS: PULSE 64
[2018-05-30] MEDS: Isosorbide Mononitrate 30 MG ER 24HR Tablet (Imdur) PO SCH (06:15)
[2018-05-30] MEDS: hydrALAZINE 50 MG Tablet PO SCH ×3 (09:05→17:31)
[2018-05-30] MEDS: Lisinopril 10 MG Tablet PO SCH (09:06)
[2018-05-30] MEDS: amLODIPine 5 MG Tablet PO SCH ×2 (09:06→21:09)
[2018-05-30] MEDS: Pantoprazole Sodium 20 MG DR Tablet PO SCH ×2 (09:07→20:57)
[2018-05-30] MEDS: QUEtiapine 25 MG Tablet PO SCH ×2 (09:07→20:56)
--- NOTE | 2018-05-30 17:55 | P.PNIM ---
Subjective Interval history: Follow-up chest pain, HTN, Vtach, dementia, psychiatric issues, and schizophrenia. Patient seen and examined, laying in bed, denies any chest pain or shortness of breath. Patient stated he he is feeling better. Patient denies any pain, abdominal pain, denies any nausea or vomiting. Patient denies any fever or chills. Nurse reported no acute concerns for the patient. Stated patient is doing better and more coherent. Patient speaking more [place] this time. Physical Exam Vital signs: Vital Signs 05/30/18 05:35 Temperature 97.6 F Pulse Rate 64 Respiratory Rate 16 Blood Pressure 137/66 Pulse Oximetry 93 L Intake & Output 05/29/18 05/30/18 05/30/18 18:59 06:59 18:59 Intake Total 1080 / 1080 0 / 0 1200 / 1200 Balance 1080 / 1080 0 / 0 1200 / 1200 Intake: Oral 1080 / 1080 0 / 0 1200 / 1200 Oral Supplement 0 / 0 Other: # Voids 4 2 Narrative: GENERAL: Well-developed, well-nourished, Belgian speaking male, in no apparent distress SKIN: Warm and dry. HEAD: Atraumatic. Normocephalic. EYES: Pupils equal and round. No scleral icterus. No injection or drainage. ENT: No nasal bleeding or discharge. Mucous membranes pink and moist. NECK: Trachea midline. No JVD. CARDIOVASCULAR: Regular rate and rhythm. RESPIRATORY: No accessory muscle use. Clear to auscultation. Breath sounds equal bilaterally. GASTROINTESTINAL: Abdomen flat soft, non-tender, nondistended. MUSCULOSKELETAL: Extremities without clubbing, cyanosis, or edema. No obvious deformities. NEUROLOGICAL: Awake and alert. No obvious cranial nerve deficits. Motor grossly within normal limits. Five out of 5 muscle strength in the arms and legs. Normal speech. PSYCHIATRIC: Appropriate mood and affect; insight and judgment unreliable Results - Labs CBC & Chem 7: 05/17/18 05:30 05/28/18 21:14 Assessment and Plan - Assessment (1) Chest pain Code(s): R07.9 - Chest pain, unspecified Status: Acute (2) CAD (coronary artery disease) Code(s): I25.10 - Atherosclerotic heart disease of [place] coronary artery without angina pectoris Status: Acute (3) Hypertension Code(s): I10 - Essential (primary) hypertension Status: Acute (4) Hyperlipidemia Code(s): E78.5 - Hyperlipidemia, unspecified Status: Acute (5) Dementia with behavioral disturbance Code(s): F03.91 - Unspecified dementia with behavioral disturbance Status: Acute - Plan This is an 83 years old male with past Medical History of HTN, Vtach, dementia, psychiatric issues, schizoprenia,was [place] acted, recently admitted for the same problem under [place] Act, was discharged and came back after 24 hrs for the same problem. Medical team consulted for medical management Chest Pain/CAD Hypertension/Hx Vtach Bradycardia - BP improving, recent BP 126/62, 137/66, HR ranging fron 59-70 -increase hydralazine dose -continue prn clonidine for sbp>160 or dbp>90 -rechecked serial troponin was 0.03, 0.02, 0.03 - ECG sinus rhythm, left anterior fascicular block, incomplete right bundle branch block and PAC's -Continue monitor blood pressure -Cardiology consulted, appreciate recommendation, started on Imdur and toprol XL low dose -monitor HR and BP, patient have recent bradycardic episode in early admission - no chest pain or SOB today Altered Mental Status increased confusion, likely related to psychiatric issues, will rule out metabolic causes -send urine for U/A, unable to obtain at this time,discussed with the nurse, will attempt to obtain sample again -CBC unremarkable -BMP: Creatinine improved from 1.43, to 0.93 Dementia increasing confusion -improving -increase Namenda for therapeutic dose -monitor mental status Hyperlipidemia -continue Pravastatin -monitor lipids and LFT Osteoarthritisleft knee edema History of bilateral knee surgery -As needed ice pack Abdominal Pain- resolved questionable constipation-improved -continue stool softener Schizophrenia -management by Psychiatric Team Schizophrenia -management by Psychiatric Team DVT Prophylaxis: patient ambulatory Code Status: full code Discussed Condition With: patient and nurse (5) Dementia with behavioral disturbance Qualifiers: Dementia type: unspecified type Qualified Code(s): F03.91 - Unspecified dementia with behavioral disturbance
--- NOTE | 2018-05-30 20:17 | ECG ---
Date Performed: 05/29/2018 Time Performed: 13:23:28 PTAGE: 83 years EKG: Sinus rhythm with premature atrial contractions. MARKED LEFT AXIS DEVIATION Since previous tracing, no significan t change noted Abnormal ECG PREVIOUS TRACING : 05/28/2018 14.50 DOCTOR: Yemi Combs Interpretating Date/Time 05/30/2018 20:16:18
--- NOTE | 2018-05-30 20:44 | P.PNPSY ---
Subjective Remarks: Patient seen for follow-up, chart reviewed. Discussion with nursing staff reported that patient no behavioral disturbances has been found ambulating on the unit. Patient was found in hallway noted to be calm and cooperative. Patient denies any further chest pain or recurrence. Patient reports sleeping well eating and drinking well. Patient state his mood has been "bad" stating "they have not paid name from our care". Patient continues with baseline confusion but denying any physical complaints at this time. No behavioral services. Review of Systems All other systems reviewed negative except as stated in HPI Mental Status Examination Appearance: Appropriate Consciousness: Alert Orientation: Person Motor Activity: Normal gait Speech: Unremarkable Language: Adequate Fund of Knowledge: Inadequate Attention and Concentration: Easily distracted Memory: Impaired Mood: Good Affect: Appropriate Thought Process & Associations: Other ([place] and rambling at times) Thought Content: Delusional Hallucination Type: None Delusion Type: Paranoid Suicidal Ideation: No Suicidal Plan: No Suicidal Intention: No Homicidal Ideation: No Homicidal Plan: No Homicidal Intention: No Insight: Poor Judgment: Poor Assessment and Plan - Assessment (1) Dementia with behavioral disturbance Code(s): F03.91 - Unspecified dementia with behavioral disturbance Status: Acute - Plan Plan: Patient continues with baseline confusion but no notable behavioral disturbances recently, has been visible and social with other peers. We will continue current treatment. We will continue to monitor mood and behavior. Discharge planning a progress. Patient will present to mental health court tomorrow. Justification for Continued Inpatient Stay: At risk of further decompensation at lower level care. (1) Dementia with behavioral disturbance Qualifiers: Dementia type: unspecified type Qualified Code(s): F03.91 - Unspecified dementia with behavioral disturbance
[2018-05-31 06:33] VITALS: RESP 18; O2SAT 96
[2018-05-31 06:52] VITALS: BP 157/70; TEMP 96.6
[2018-05-31] MEDS: Isosorbide Mononitrate 30 MG ER 24HR Tablet (Imdur) PO SCH (06:57)
[2018-05-31] MEDS: Lisinopril 10 MG Tablet PO SCH (09:05)
[2018-05-31] MEDS: QUEtiapine 25 MG Tablet PO SCH (09:05)
[2018-05-31] MEDS: Pantoprazole Sodium 20 MG DR Tablet PO SCH (09:06)
[2018-05-31] MEDS: hydrALAZINE 50 MG Tablet PO SCH ×2 (09:06→13:29)
[2018-05-31] MEDS: amLODIPine 5 MG Tablet PO SCH (09:06)
--- NOTE | 2018-05-31 13:47 | P.PNIM ---
Subjective Interval history: Follow-up chest pain, HTN, Vtach, dementia, psychiatric issues, and schizophrenia. Patient ambulating in the hallway without any distress, patient denies any chest pain or shortness of breath. Patient stated he is eating well , sleeping well stated getting better. Denies any discomfort. Nurse reported patient is going to be discharge today with the family. Physical Exam Vital signs: Vital Signs 05/30/18 20:00 05/31/18 06:29 05/31/18 06:50 Temperature 98 F 97.6 F 96.6 F L Pulse Rate 64 Respiratory Rate 16 18 18 Blood Pressure 140/62 157/70 H Pulse Oximetry 94 L 96 Intake & Output 05/30/18 05/31/18 05/31/18 18:59 06:59 18:59 Intake Total 1200 / 1200 220 / 220 360 / 360 Balance 1200 / 1200 220 / 220 360 / 360 Weight 68 kg Intake: Oral 1200 / 1200 120 / 120 360 / 360 Oral Supplement 100 / 100 Other: # Voids 1 Narrative: GENERAL: Well-developed, well-nourished, [place] speaking male, in no apparent distress SKIN: Warm and dry. HEAD: Atraumatic. Normocephalic. EYES: Pupils equal and round. No scleral icterus. No injection or drainage. ENT: No nasal bleeding or discharge. Mucous membranes pink and moist. NECK: Trachea midline. No JVD. CARDIOVASCULAR: Regular rate and rhythm. RESPIRATORY: No accessory muscle use. Clear to auscultation. Breath sounds equal bilaterally. GASTROINTESTINAL: Abdomen flat soft, non-tender, nondistended. MUSCULOSKELETAL: Extremities without clubbing, cyanosis, or edema. No obvious deformities. NEUROLOGICAL: Awake and alert. No obvious cranial nerve deficits. Motor grossly within normal limits. Five out of 5 muscle strength in the arms and legs. Normal speech. PSYCHIATRIC: Appropriate mood and affect; insight and judgment unreliable Results - Labs CBC & Chem 7: 05/17/18 05:30 05/28/18 21:14 Assessment and Plan - Assessment (1) Chest pain Code(s): R07.9 - Chest pain, unspecified Status: Acute (2) CAD (coronary artery disease) Code(s): I25.10 - Atherosclerotic heart disease of [place] coronary artery without angina pectoris Status: Acute (3) Hypertension Code(s): I10 - Essential (primary) hypertension Status: Acute (4) Hyperlipidemia Code(s): E78.5 - Hyperlipidemia, unspecified Status: Acute (5) Dementia with behavioral disturbance Code(s): F03.91 - Unspecified dementia with behavioral disturbance Status: Acute - Plan This is an 83 years old male with past Medical History of HTN, Vtach, dementia, psychiatric issues, schizoprenia,was dennis acted, recently admitted for the same problem under [place] Act, was discharged and came back after 24 hrs for the same problem. Medical team consulted for medical management Chest Pain/CAD Hypertension/Hx Vtach Bradycardia - BP improving, recent BP 126/62, 137/66, HR ranging fron 59-70 -increase hydralazine dose -continue prn clonidine for sbp>160 or dbp>90 -rechecked serial troponin was 0.03, 0.02, 0.03 - ECG sinus rhythm, left anterior fascicular block, incomplete right bundle branch block and PAC's -Continue monitor blood pressure -Cardiology consulted, appreciate recommendation, started on Imdur and toprol XL low dose -monitor HR and BP, patient have recent bradycardic episode in early admission - no chest pain or SOB today -Follow-up with a can inspector upon discharge as an outpatient Altered Mental Status increased confusion, likely related to psychiatric issues, will rule out metabolic causes -send urine for U/A, unable to obtain at this time,discussed with the nurse, will attempt to obtain sample again -CBC unremarkable -BMP: Creatinine improved from 1.43, to 0.93 Dementia, with behavioral disturbance increasing confusion -improving -Continue Namenda for therapeutic dose - mental status improving -Monitor mental status -We will follow-up with the primary care upon discharge Hyperlipidemia -continue Pravastatin -monitor lipids and LFT Osteoarthritisleft knee edema History of bilateral knee surgery -As needed ice pack Abdominal Pain- resolved questionable constipation-improved -continue stool softener Schizophrenia -management by Psychiatric Team DVT Prophylaxis: patient ambulatory Code Status: Full code Discussed Condition With: Patient and nurse Discharge Planning: Follow-up with PCP in 1 week Follow-up with can inspector in 2 weeks and as needed (5) Dementia with behavioral disturbance Qualifiers: Dementia type: unspecified type Qualified Code(s): F03.91 - Unspecified dementia with behavioral disturbance
--- NOTE | 2018-05-31 21:38 | P.DSPSY ---
Psychiatry Discharge Summary Inpatient Psychiatric care?: Yes Advance Directives: Unknown Reason for Unknown:: Due to Patient Condition Mental Health Advance Directive: No Health Care Proxy: Yes Health Care Proxy Name: Patient's - Admission Admission Date: May 15, 2018 15:07 - Admission Diagnosis (1) Dementia with behavioral disturbance Code(s): F03.91 - Unspecified dementia with behavioral disturbance Brief History: Patient is an 83-year-old man, , domiciled with , retired, with a past psychiatric history of dementia, one recent previous psychiatric admission, no previous suicide attempt or self-injurious behavior, substance use history significant for daily alcohol use, with a past medical history of hypertension, hyperlipidemia who was brought under Dennis act after patient noted to be verbally aggressive toward , bizrare delusions of cheating on him, recently took the vehicle and drove off which patient was re-admitted to the inpatient psychiatry for further evaluation and management. Patient was recently discharged from the inpatient psychiatry unit back to family as they did not want patient to be placed at that time and wanted to attempt to manage patient at home. Patient apparently was not able to be managed by and was brought back to the hospital. Discussion with nursing staff reported that patient noted to be confused, needed redirection, refusing EEG but noted to be social, ecstasy can at times but redirectable. Patient was found ambulating on the unit noted to be social with other patients. Patient states that he is here speaking with his friends, noted to be confused, alert and oriented only to person. When asked about events prior to his admission patient has no recollection and was noted to be's tangential with random topics. Patient was encouraged to comply with treatment evaluation which he agreed. Patient denies any suicidal homicidal ideations, denies any perceptional disturbances. Collateral information obtained by patient's will also serve as patient's healthcare surrogate and consents to have patient resume psychotropic medications. Patient's states that after he had gotten back home he had been upset with due to being From driving which he became belligerent and verbally threatening toward her but no physical aggression. He also began to accuse her of cheating on her was inconsistent with compliance with medications and had taken the keys to the vehicle from her purse and left the house starting but had made his way back and upon return was brought to the hospital. History unchanged from recent discharge as stated below: Family psychiatric history: Denies. Past psychiatric history: Previous psychiatric diagnosis of dementia, denies any previous psychiatric admissions, suicide attempts of interest behavior, denies any history of abuse. Substance use history: Daily alcohol use of 1-2 glasses of wine per day, denies use of any other drugs. Past medical history: Hypertension hyperlipidemia, V. tach, lung disease, Bilateral knee replacements Allergies: NKDA Social history: , domiciled white, retired, highest education sixth grade. Tobacco Use In Past 30 Days: No How Often Do You Have a Drink Containing Alcohol: Unable to Obtain Hospital Course: Patient is an 83-year-old man, , domiciled with , retired, with a past psychiatric history of dementia, one recent previous psychiatric admission, no previous suicide attempt or self-injurious behavior, substance use history significant for daily alcohol use, with a past medical history of hypertension, hyperlipidemia who was brought under Dennis act after patient noted to be verbally aggressive toward , bizarre delusions of cheating on him, recently took the vehicle and drove off which patient was re-admitted to the inpatient psychiatry for further evaluation and management. Patient was admitted to a locked, inpatient psychiatric unit. Appropriate precautions were in place throughout patient's hospital stay. Patient was seen and examined on the unit by psychiatry. Psychotropic medications were adjusted. There was no evidence of any suicidality or homicidality on the inpatient unit. Patient's behavior improved with the benefit of psychopharmacological treatment and had no further behavioral disturbance since admission. Patient was noted to have basline confusion secondary to dementia but was able to maintain stable mood, noted to participate and engage in treatment and interact with staff adequately. Patient noted to be confused mostly but agreeable to continue treatment and outpatient follow-up appointments for continuity of care. Patient presented to mental health court where patient was discharged back to family's care as ordered by the court cable maker. Patient and family advised to return to psychiatric emergency room for any concerning psychiatric symptoms. Family agrees with plan. - Discharge Discharge Date: 05/31/18 - Discharge Diagnosis (1) Dementia with behavioral disturbance Code(s): F03.91 - Unspecified dementia with behavioral disturbance Status: Acute Discharge Disposition: Home - Discharge Instructions Discharge Diet: Heart Healthy Diet Activities You Can Perform: Regular- No Restrictions - Discharge Time > 30 minutes Mental Status Examination Appearance: Appropriate Consciousness: Alert Orientation: Person Motor Activity: Normal gait Speech: Unremarkable Language: Adequate Fund of Knowledge: Inadequate Attention and Concentration: Easily distracted Memory: Impaired Mood: Good Affect: Appropriate Thought Process & Associations: Other ([place] and rambling at times) Thought Content: Delusional Hallucination Type: None Delusion Type: Paranoid (minimal) Suicidal Ideation: No Suicidal Plan: No Suicidal Intention: No Homicidal Ideation: No Homicidal Plan: No Homicidal Intention: No Insight: Poor Judgment: Poor Discharge/Advance Care Plan - Results Vital Signs: Last Vital Signs Temp 96.6 F L 05/31/18 06:50 Pulse 64 05/30/18 20:00 Resp 18 05/31/18 06:50 BP 157/70 H 05/31/18 06:50 Pulse Ox 96 05/31/18 06:29 Lab Results: Laboratory Results Hemoglobin A1c 5.5 % (4.3-6.0) 05/16/18 14:08 Triglycerides 150 mg/dL (42-150) 05/16/18 14:08 Cholesterol 178 mg/dL (120-200) 05/16/18 14:08 LDL Cholesterol, Calc 108 mg/dL (0-99) H 05/16/18 14:08 HDL Cholesterol 39.6 mg/dL (40.0-60.0) L 05/16/18 14:08 Summary of Procedures: none Imaging: ITS Impressions Abdomen X-Ray 05/20/18 00:00 CONCLUSION: Benign abdomen. Pending Results: None - Medications Number of antipsychotic medications at discharge: 1 - Discharge Care Plan Goals to Promote Your Health: * To prevent worsening of your condition and complications * To maintain your health at the optimal level Directions to Meet Your Goals: Take your medications as prescribed Follow your dietary instruction Follow activity as directed Keep your appointments as scheduled Take your immunizations and boosters as scheduled If your symptoms worsen call your PCP, if no PCP go to Urgent Care Center or Emergency Room For 06/03 questions related to your inpatient stay or results of tests pending at discharge, please contact Dr. Kael Gan MD at Smoking is Dangerous to Your Health. Avoid second hand smoking (1) Dementia with behavioral disturbance Qualifiers: Dementia type: unspecified type Qualified Code(s): F03.91 - Unspecified dementia with behavioral disturbance (1) Dementia with behavioral disturbance Qualifiers: Dementia type: unspecified type Qualified Code(s): F03.91 - Unspecified dementia with behavioral disturbance
== END 2018-05-31 13:43 | disposition home or self-care (01) ==
LOC: NEPE 13:48 → NEDA 15:07 → H250 17:34
PROVIDERS: ADMIT Student in an Organized Health Care Education/Training Program; ATTEND Student in an Organized Health Care Education/Training Program

== ENCOUNTER 2018-10-11 15:21 | Observation (INO) ==
--- NOTE | 2018-10-11 17:15 | XR ---
EXAM DATE: 10/11/2018 5:08 PM EST AGE/SEX: 83 years / Male INDICATIONS: Chest pain. CLINICAL DATA: This is the patient's initial encounter. Patient reports that signs and symptoms have been present for 1 day and indicates a pain score of 5/10. MEDICAL/SURGICAL HISTORY: . Gastroesophageal reflux disease. Cardiovascular disease. Dementia. Hypertension. None. COMPARISON: [facility], XR CHEST PA AND LAT, 06/22/2011. . FINDINGS: The heart is top normal in size. The pulmonary vascular pattern is normal. The lungs are clear. Degen erative changes are noted throughout the thoracic spine. Degenerative changes are noted involving the shoulders bilaterally. CONCLUSION: 1. No acute cardiopulmonary disease. 2. Degenerative changes involving the shoulders and thoracic spine. Electronically signed by: Michael Nguyen MD Board Certified Radiologist 10/11/2018 5:14 PM EST
[2018-10-11 17:27] LABS: Baso % (Auto) 0.4 % (0.0-2.0); Eos # (Auto) 0.2 th/mm3 (0.0-0.4); Eos % (Auto) 2.8 % (0.0-4.0); Hematocrit 39.5 % (39.0-51.0); Hemoglobin 13.7 gm/dL (13.0-17.0); Lymph # (Auto) 1.4 th/mm3 (1.0-4.8); Lymph % (Auto) 22.3 % (9.0-44.0); Mean Corpuscular HGB Conc 34.6 % (32.0-36.0); Mean Corpuscular Hemoglobin 31.3 pg (27.0-34.0); Mean Corpuscular Volume 90.3 fL (80.0-100.0); Mean Platelet Volume 8.4 fL (7.0-11.0); Mono # (Auto) 0.6 th/mm3 (0.0-0.9); Mono % (Auto) 9.7 % (0.0-8.0); Neut % (Auto) 64.8 % (16.0-70.0); Platelet Count 199 th/mm3 (150-450); Red Blood Count 4.37 mil/mm3 (4.50-5.90); Red Cell Distribution Width 14.2 % (11.6-17.2); White Blood Count 6.1 th/mm3 (4.0-11.0)
--- NOTE | 2018-10-11 17:33 | ED ---
HPI General Chief Complaint: Chest Pain Stated Complaint: poss heart complaint Time Seen by Provider: 10/11/18 16:34 Source: patient and EMS Mode of arrival: EMS Limitations: altered mental status History of Present Illness HPI narrative: 83-year-old male who presents to the ED for evaluation of chest pain. Patient was brought here by [facility] from a [facility] secondary to an episode of chest pain the patient had well in the fpc. Per patient he complained of 3 episodes of chest pain that went away on their own. Per patient he did not wanted to come here and from [facility] report apparently he was brought here for evaluation of this. He does have a known history of dementia and agitation. Currently completely asymptomatic. He denies any medical issues. Per patient he is here because "the want my money ". Denies any fevers chills or sweats. No recent travel. No injury. Patient is somewhat of a poor historian secondary to his dementia. Related Data Home Medications Medication Instructions Recorded Confirmed amlodipine [Norvasc] 5 mg PO DAILY 10/11/18 10/11/18 divalproex [Depakote] 250 mg PO BID 10/11/18 10/11/18 isosorbide dinitrate 30 mg PO DAILY 10/11/18 10/11/18 memantine [Namenda] 10 mg PO BID 10/11/18 10/11/18 metoprolol tartrate 12.5 mg PO BID 10/11/18 10/11/18 pravastatin 10 mg PO DAILY 10/11/18 10/11/18 quetiapine [Seroquel] 25 mg PO BID 10/11/18 10/11/18 quetiapine [Seroquel] 50 mg PO HS 10/11/18 10/11/18 Allergies Allergy/AdvReac Type Severity Reaction Status Date / Time No Known Allergies Allergy Verified 10/11/18 16:40 Review of Systems ROS: all other systems reviewed are negative [facility] Medical History Medical History Dementia (Acute) GERD (gastroesophageal reflux disease) (Acute) Hypercholesteremia (Acute) Hypertension (Acute) Lung disease (Acute) Schizophrenia (Acute) V-tach (Acute) Surgical History Surgical History History of bilateral knee replacement (Acute) Total knee replacement status (Acute) Family History Family History Other Family history unobtainable Social History Social History Substance History: No History of Abuse Second Hand Smoke Exposure: No Smoking Status: Former smoker How Often Do You Have a Drink Containing Alcohol: Never Recent Travel in [facility] within the Last 8 Weeks: No Recent Out of Country Travel within the Last 8 Weeks: No Immunization History Tetanus Immunization: <5 Years Exam Narrative Exam Narrative: GENERAL: Well-appearing in no distress. SKIN: Focused skin assessment warm/dry. HEAD: Atraumatic. Normocephalic. EYES: Pupils equal and round. No scleral icterus. No injection or drainage. ENT: No nasal bleeding or discharge. Mucous membranes pink and moist. Tongue is midline. No uvula deviation. NECK: Trachea midline. No JVD. CARDIOVASCULAR: Regular rate and rhythm. No murmur appreciated. RESPIRATORY: No accessory muscle use. Clear to auscultation. Breath sounds equal bilaterally. GASTROINTESTINAL: Abdomen soft, non-tender, nondistended. Hepatic and splenic margins not palpable. MUSCULOSKELETAL: No obvious deformities. No clubbing. No cyanosis. No edema. Full range of motion of the upper and lower extremities bilaterally. 2+ pulses bilaterally. NEUROLOGICAL: Awake and alert. No obvious cranial nerve deficits. Motor grossly within normal limits. Normal speech. PSYCHIATRIC: Appropriate mood and affect; insight and judgment normal. Course Initial Documented Vital Signs Temperature 98.4 F 10/11/18 17:21 Pulse Rate 63 10/11/18 17:21 Respiratory Rate 17 10/11/18 17:21 Blood Pressure 178/93 H 10/11/18 17:21 Pulse Oximetry 98 10/11/18 17:21 Last Documented Vital Signs Temperature 98.4 F 10/11/18 17:21 Pulse Rate 59 L 10/11/18 18:02 Respiratory Rate 22 10/11/18 18:02 Blood Pressure 151/69 H 10/11/18 18:02 Pulse Oximetry 97 10/11/18 18:02 Medical Decision Making MDM Narrative Medical decision making narrative: 83-year-old male who presents to the ED for evaluation of chest pain. Patient was properly examined and was found to have signs and symptoms consistent appears to be chest pain. Unclear etiology. Patient is not the greatest historian but does have dementia. Labs and imaging ordered. Labs and imaging essentially unremarkable here. Patient does have a known history of coronary disease as well as hyperlipidemia and hypertension. Cannot rule out ACS. I discussed this with my attending Dr. Dawson who evaluated the patient and recommends admission to chest pain center for further evaluation and treatment. He is aware of the patient's dementia and states that the patient should be okay in the chest pain center. Patient was admitted to chest pain center by me. Of note patient Maltese-speaking only and was offered translational services but he felt comfortable with my Maltese that he declined translational services Medical Screen Exam Complete: Yes Emergency Medical Condition: Yes Differential Diagnosis Differential Diagnosis: Chest pain versus ACS versus a typical chest pain Medical Records Medical records reviewed: Yes I reviewed the patient's medical records. Lab Data Lab results reviewed: Yes I reviewed the patient's lab results. Result diagrams: 10/11/18 17:11 10/11/18 17:11 Lab Results 10/11/18 10/11/18 Range/Units 17:11 17:11 WBC 6.1 (4.0-11.0) th/mm3 RBC 4.37 L (4.50-5.90) mil/mm3 Hgb 13.7 (13.0-17.0) gm/dL Hct 39.5 (39.0-51.0) % MCV 90.3 (80.0-100.0) fL MCH 31.3 (27.0-34.0) pg MCHC 34.6 (32.0-36.0) % RDW 14.2 (11.6-17.2) % Plt Count 199 (150-450) th/mm3 MPV 8.4 (7.0-11.0) fL Neut % (Auto) 64.8 (16.0-70.0) % Lymph % (Auto) 22.3 (9.0-44.0) % [place] % (Auto) 9.7 H (0.0-8.0) % Eos % (Auto) 2.8 (0.0-4.0) % Baso % (Auto) 0.4 (0.0-2.0) % Neut # (Auto) 4.0 (1.8-7.7) th/mm3 Lymph # (Auto) 1.4 (1.0-4.8) th/mm3 [place] # (Auto) 0.6 (0.0-0.9) th/mm3 Eos # (Auto) 0.2 (0.0-0.4) th/mm3 Baso # (Auto) 0.0 (0.0-0.2) th/mm3 WBC Differential . Differential Comment Auto diff final Sodium 142 (136-145) meq/L Potassium 3.9 (3.5-5.1) meq/L Chloride 107 (98-107) meq/L Carbon Dioxide 28.1 (21.0-32.0) meq/L Anion Gap 7 (5-15) meq/L BUN 27 H (7-18) mg/dL Creatinine 0.98 (0.60-1.30) mg/dL Estimated GFR 73 L (>89) mL/min Random Glucose 89 (74-106) mg/dL Calcium 8.3 L (8.5-10.1) mg/dL Total Bilirubin 0.3 (0.2-1.0) mg/dL AST 19 (15-37) U/L ALT 22 (12-78) U/L Alkaline Phosphatase 60 (45-117) U/L Total Creatine Kinase 167 (39-308) U/L CK-MB (CK-2) 2.8 (0.5-3.6) ng/mL Troponin I 0.03 (0.02-0.05) ng/mL Total Protein 6.7 (6.4-8.2) g/dL Albumin 3.5 (3.4-5.0) g/dL Lipase 287 (73-393) U/L Imaging Data Attestation: I personally reviewed and interpreted this imaging study as follows : Radiologist's impression: Chest X-Ray 10/11/18 16:41 CONCLUSION: 1. No acute cardiopulmonary disease. 2. Degenerative changes involving the shoulders and thoracic spine. ECG Data Attestation: I personally reviewed and interpreted this ECG as follows: Interpretation: EKG shows sinus rhythm with no sign of acute ischemia or arrhythmia read by me and attending. Discharge Plan Discharge Disposition Patient Disposition: ED Admit(ED Internal Use Only) Discharge Order Discharge Orders: ED Use Only Admit Order (Routine); Ordered 10/11/18 Ordered By: Apolinar Boggs Discharge Details Diagnosis: Chest pain, rule out acute myocardial infarction Physicians Team ED Provider: Anibal Dawson ED Midlevel Provider: Apolinar Boggs Primary Care Provider: UNKNOWN, Attending Provider: Arnulfo Galeano Status ED Status: Admitted Observation Patient
[2018-10-11 17:50] LABS: Alkaline Phosphatase 60 U/L (45-117); Creatine Kinase 167 U/L (39-308); Total Protein 6.7 g/dL (6.4-8.2); Troponin I 0.03 ng/mL (0.02-0.05)
[2018-10-11 17:51] LABS: Alanine Aminotransferase 22 U/L (12-78); Albumin 3.5 g/dL (3.4-5.0); Anion Gap 7 meq/L (5-15); Aspartate Aminotransferase 19 U/L (15-37); Blood Urea Nitrogen 27 mg/dL (7-18); Calcium 8.3 mg/dL (8.5-10.1); Carbon Dioxide 28.1 meq/L (21.0-32.0); Chloride 107 meq/L (98-107); Glomerular Filtration Rate 73 mL/min (>89); Glucose,Random 89 mg/dL (74-106); Lipase 287 U/L (73-393); Potassium 3.9 meq/L (3.5-5.1); Sodium 142 meq/L (136-145)
[2018-10-11 18:02] LABS: Creatine Kinase MB 2.8 ng/mL (0.5-3.6)
[2018-10-11 20:45] LABS: Troponin I 0.03 ng/mL (0.02-0.05)
[2018-10-11] MEDS ORDERED: Divalproex 250 MG ER Tablet PO ONE (21:00)
[2018-10-11] MEDS ORDERED: QUEtiapine 25 MG Tablet PO ONE (21:00)
[2018-10-11] MEDS ORDERED: Metoprolol Tartrate 25 MG Tablet PO ONE (21:00)
[2018-10-11] MEDS ORDERED: Divalproex 250 MG DR Tablet PO ONE (21:00)
--- NOTE | 2018-10-11 21:20 | ECG ---
Date Performed: 10/11/2018 Time Performed: 16:42:10 PTAGE: 83 years EKG: SINUS BRADYCARDIA WITH FIRST DEGREE AV BLOCK WITH OCCASIONAL SUPRAVENTRICULAR PREMATURE COM PLEXES LEFT AXIS DEVIATION NONSPECIFIC INTRAVENTRICULAR CONDUCTION DELAY POSSIBLE LEFT VENTRICULAR HY PERTROPHY POSSIBLE LATERAL MYOCARDIAL INFARCTION ABNORMAL ECG NO PREVIOUS TRACING DOCTOR: Matthew Allred Interpretating Date/Time 10/11/2018 21:19:10
[2018-10-11 23:22] VITALS: RESP 16
[2018-10-11 23:48] LABS: Troponin I 0.04 ng/mL (0.02-0.05)
[2018-10-12 07:19] VITALS: BP 176/85; TEMP 98.1; O2SAT 97
--- NOTE | 2018-10-12 08:11 | ECG ---
Date Performed: 10/11/2018 Time Performed: 23:15:30 PTAGE: 83 years EKG: Sinus rhythm WITH FIRST DEGREE AV BLOCK WITH OCCASIONAL VENTRICULAR PREMATURE COMPLEXES WITH OCCASIONAL SUPRAVENT RICULAR PREMATURE COMPLEXES LEFT VENTRICULAR HYPERTROPHY POSSIBLE LATERAL MYOCARDIAL INFARCTION ABNOR MAL ECG PREVIOUS TRACING : 10/11/2018 20.42 No significant change from previous tracing noted. DOCTOR: Matthew Allred Interpretating Date/Time 10/12/2018 08:10:32
--- NOTE | 2018-10-12 08:16 | ECG ---
Date Performed: 10/11/2018 Time Performed: 20:42:35 PTAGE: 83 years EKG: Sinus rhythm WITH FIRST DEGREE AV BLOCK WITH OCCASIONAL SUPRAVENTRICULAR PREMATURE COMPLEXES NONSPECIFIC INTRAVEN TRICULAR CONDUCTION DELAY LEFT VENTRICULAR HYPERTROPHY ABNORMAL ECG PREVIOUS TRACING : 05/29/2018 13.23 No significant change from previous tracing noted. DOCTOR: Matthew Allred Interpretating Date/Time 10/12/2018 08:15:00
--- NOTE | 2018-10-12 08:29 | P.HPCA ---
History of Present Illness Primary Care Physician: UNKNOWN Chief Complaint: Chest pain History of Present Illness: This is an 83-year-old male that presents to the ED via [facility] from care home with a reported complaint of chest discomfort. Patient was evaluated while also using [facility] system. Patient states that he did not have chest pain. States he has no complaints and really does not know why he has to be here. He has history of dementia which she does not recall. States that he does not live in a care home and that he lives with his in [place]. But he repeatedly denies having chest discomforts of any type and also having any type of shortness of breath. Upon reviewing records he has history of heart disease and history of paroxysmal ventricular tachycardia. Really unknown at this point if he follows with a photographer portrait any longer. We are waiting the nurse to get his on the phone to get more information Past medical history: This is obtained through electronic records which includes CAD, dementia, paroxysmal ventricular tachycardia, hypertension, hyperlipidemia, and GERD. Family history: Unknown. Social history: According to ER records, patient lives in a care home. I believe he was a former smoker. - Diagnosis (1) Chest pain (2) Hypertension (3) Hyperlipidemia (4) Dementia (5) CAD (coronary artery disease) Review of Systems ROS is very limited with his history of dementia. He continues to deny having chest discomfort or shortness of breath. Denies any type of medical complaints at this time. [facility] - History History Provided By: Patient, Significant Other - Medical History Medical History: Medical History (Last Reviewed 10/11/18 @ 17:32 by STEPHEN Lynne) Dementia GERD (gastroesophageal reflux disease) Hypercholesteremia Hypertension Lung disease Schizophrenia V-tach - Surgical History Surgical History: Surgical History (Last Reviewed 10/11/18 @ 17:32 by STEPHEN Lynne) History of bilateral knee replacement Total knee replacement status - Family History Family History: Family History (Last Reviewed 10/11/18 @ 17:32 by STEPHEN Lynne) Other Family history unobtainable - Tobacco History Second Hand Smoke Exposure: No Tobacco Use In Past 30 Days: No Smoking Status: Former smoker Tobacco Type: Cigarettes - Alcohol History How Often Do You Have a Drink Containing Alcohol: Never - Substance Use History Substance History: No History of Abuse - Travel History Recent Travel in the [facility] Within the Last 8 Weeks: No Recent Travel Out of the Country Within the Last 8 Weeks: No - Immunization History Tetanus Immunization: <5 Years Medications and Allergies Active Medications: Active Medications Amlodipine Besylate (Norvasc) 5 mg PO DAILY [place] Pravastatin Sodium (Pravachol) 10 mg PO DAILY [place] Sodium Chloride (Ns Flush) 2 ml IV.FLUSH BID [place] Last Admin: 10/11/18 21:40 Dose: 2 ml Sodium Chloride (Ns Flush) 2 ml IV.FLUSH PRN PRN PRN Reason: FLUSH AFTER USING IV ACCESS Allergies Allergy/AdvReac Type Severity Reaction Status Date / Time No Known Allergies Allergy Verified 10/11/18 16:40 Home Medications Medication Instructions Recorded Confirmed Type amlodipine [Norvasc] 5 mg PO DAILY 10/11/18 10/11/18 History divalproex [Depakote] 250 mg PO BID 10/11/18 10/11/18 History isosorbide dinitrate 30 mg PO DAILY 10/11/18 10/11/18 History memantine [Namenda] 10 mg PO BID 10/11/18 10/11/18 History metoprolol tartrate 12.5 mg PO BID 10/11/18 10/11/18 History pravastatin 10 mg PO DAILY 10/11/18 10/11/18 History quetiapine [Seroquel] 25 mg PO BID 10/11/18 10/11/18 History quetiapine [Seroquel] 50 mg PO HS 10/11/18 10/11/18 History Exam Vital signs: Vital Signs 10/11/18 17:21 10/11/18 18:02 10/11/18 19:18 Temperature 98.4 F Pulse Rate 63 59 L 66 Respiratory Rate 17 22 18 Blood Pressure 178/93 H 151/69 H 164/75 H Pulse Oximetry 97 97 95 10/11/18 20:00 10/11/18 23:11 10/12/18 00:00 Temperature 98.3 F 96.8 F L Pulse Rate 60 56 L 56 L Respiratory Rate 12 16 Blood Pressure 159/74 H 133/61 Pulse Oximetry 95 95 10/12/18 04:00 10/12/18 07:13 Temperature 98.1 F Pulse Rate 49 L 73 Respiratory Rate 16 Blood Pressure 176/85 H Pulse Oximetry 97 Intake & Output 10/11/18 10/12/18 10/12/18 18:59 06:59 18:59 Intake Total 480 / 480 Balance 480 / 480 Weight 72.121 kg 72.121 kg Intake: Oral 480 / 480 Other: # Voids 3 Weight On Admission 72.121 kg Narrative: GENERAL: This is a well-nourished, well-developed patient, in no apparent distress. Patient speaks in clear complete sentences. Patient is pleasant. HEENT: Head is atraumatic and normocephalic. Neck is supple without lymphadenopathy and trachea is midline. No JVD or carotid bruits. CARDIOVASCULAR: Regular rate and rhythm without murmurs, gallops, or rubs. RESPIRATORY: Clear to auscultation. Breath sounds equal bilaterally. No wheezes , rales, or rhonchi. Chest wall is nontender. No use of accessory muscles. GASTROINTESTINAL: Abdomen is nontender, nondistended. Abdomen soft. No obvious pulsatile mass or bruit. No CVA tenderness. Strong femoral pulses bilaterally. Normal bowel sounds in all quadrants. MUSCULOSKELETAL: Patient is moving upper and lower extremities freely. No calf tenderness or edema, no Homans sign. Strong pulses in upper and lower extremities. NEUROLOGICAL: Patient is alert but is not oriented to person, place, oriented time. Cranial nerves 2-12 are grossly intact. No focal deficits and speech is clear. SKIN: No rash and turgor is normal. Results 10/11/18 17:11 10/11/18 17:11 Cardiac Enzymes 10/11/18 10/11/18 10/11/18 Range/Units 17:11 20:10 23:12 AST 19 (15-37) U/L CK-MB (CK-2) 2.8 (0.5-3.6) ng/mL Troponin I 0.03 0.03 0.04 (0.02-0.05) ng/mL CBC 10/11/18 Range/Units 17:11 WBC 6.1 (4.0-11.0) th/mm3 RBC 4.37 L (4.50-5.90) mil/mm3 Hgb 13.7 (13.0-17.0) gm/dL Hct 39.5 (39.0-51.0) % Plt Count 199 (150-450) th/mm3 Neut # (Auto) 4.0 (1.8-7.7) th/mm3 Lymph # (Auto) 1.4 (1.0-4.8) th/mm3 [place] # (Auto) 0.6 (0.0-0.9) th/mm3 Eos # (Auto) 0.2 (0.0-0.4) th/mm3 Baso # (Auto) 0.0 (0.0-0.2) th/mm3 Comprehensive Metabolic Panel 10/11/18 Range/Units 17:11 Sodium 142 (136-145) meq/L Potassium 3.9 (3.5-5.1) meq/L Chloride 107 (98-107) meq/L Carbon Dioxide 28.1 (21.0-32.0) meq/L BUN 27 H (7-18) mg/dL Creatinine 0.98 (0.60-1.30) mg/dL Calcium 8.3 L (8.5-10.1) mg/dL AST 19 (15-37) U/L ALT 22 (12-78) U/L Alkaline Phosphatase 60 (45-117) U/L Total Protein 6.7 (6.4-8.2) g/dL Albumin 3.5 (3.4-5.0) g/dL Intake and Output 10/11/18 10/12/18 10/12/18 22:59 06:59 14:59 Intake Total 480 / 480 Balance 480 / 480 Intake: Oral 480 / 480 Other: # Voids 3 Weight 72.121 kg Weight On Admission 72.121 kg - Imaging and Cardiology Imaging: Impressions Chest X-Ray 10/11/18 16:41 CONCLUSION: 1. No acute cardiopulmonary disease. 2. Degenerative changes involving the shoulders and thoracic spine. EKG interpretations - EKG EKG shows: sinus rhythm (EKG is sinus rhythm with intraventricular conduction delay, PVCs.) Caprini VTE Risk Assessment Caprini VTE Risk Assessment: Moderate/High Risk (score >= 2) Caprini Risk Assessment Model: Point Value = 1 Point Value = 2 Point Value = 3 Point Value = 5 Age 41-60 Minor surgery BMI > 25 kg/m2 Swollen legs Varicose veins or History of unexplained or recurrent spontaneous Oral contraceptives or hormone replacement Sepsis (< 1 month) Serious lung disease, including pneumonia (< 1 month) Abnormal pulmonary function Acute myocardial infarction Congestive heart failure (< 1 month) History of inflammatory bowel disease Medical patient at bed rest Age 61-74 Arthroscopic surgery Major open surgery (> 45 min) Laparoscopic surgery (> 45 min) Malignancy Confined to bed (> 72 hours) Immobilizing plaster cast Central venous access Age >= 75 History of VTE Family history of VTE Factor V Leiden Prothrombin [id number] Lupus anticoagulant Anticardiolipin antibodies Elevated serum homocysteine Heparin-induced thrombocytopenia Other congenital or acquired thrombophilia Stroke (< 1 month) Elective arthroplasty Hip, pelvis, or leg fracture Acute spinal cord injury (< 1 month) Prophylaxis Regimen: Total Risk Factor Score Risk Level Prophylaxis Regimen 0-1 Low Early ambulation 2 Moderate Order ONE of the following: *Sequential Compression Device (SCD) *Heparin 5000 units SQ BID 3-4 Higher Order ONE of the following medications: *Heparin 5000 units SQ TID *Enoxaparin/Lovenox 40 mg SQ daily (WT < 150 kg, CrCl > 30 mL/min) *Enoxaparin/Lovenox 30 mg SQ daily (WT < 150 kg, CrCl > 10-29 mL/min) *Enoxaparin/Lovenox 30 mg SQ BID (WT < 150 kg, CrCl > 30 mL/min) AND/OR *Sequential Compression Device (SCD) 5 or more Highest Order ONE of the following medications: *Heparin 5000 units SQ TID (Preferred with Epidurals) *Enoxaparin/Lovenox 40 mg SQ daily (WT < 150 kg, CrCl > 30 mL/min) *Enoxaparin/Lovenox 30 mg SQ daily (WT < 150 kg, CrCl > 10-29 mL/min) *Enoxaparin/Lovenox 30 mg SQ BID (WT < 150 kg, CrCl > 30 mL/min) AND *Sequential Compression Device (SCD) Assessment and Plan - Assessment (1) Chest pain Code(s): R07.9 - Chest pain, unspecified Status: Acute (2) Hypertension Code(s): I10 - Essential (primary) hypertension Status: Acute (3) Hyperlipidemia Code(s): E78.5 - Hyperlipidemia, unspecified Status: Acute (4) Dementia Code(s): F03.90 - Unspecified dementia without behavioral disturbance Status: Acute (5) CAD (coronary artery disease) Code(s): I25.10 - Atherosclerotic heart disease of [place] coronary artery without angina pectoris Status: Acute - Plan * Chest pain: Patient has reportedly been brought into the ED for chest discomfort that he denies however he does have history of dementia. Upon reviewing records he also history of CAD. He has been seen by Dr. Vitor Saunders of cardiology in the chest pain center at this time he will be discharged home with instructions to follow-up with PCP and cardiology. Return to ED for interval issues. * History of CAD: Follow-up with photographer portrait. * Hypertension: Continue medication. * Hyperlipidemia: Continue medication. * Dimension: Continue medication. Patient stable at this time. He is agreeable to this plan. We are awaiting conversation with the nurse and his to explain patient's treatment plan. H&P: Quality - VTE Deep Vein Thrombosis/Pulmonary Embolism Present on Admission: No
[2018-10-12] MEDS ORDERED: amLODIPine 5 MG Tablet PO SCH (09:00)
[2018-10-12 09:47] VITALS: PULSE 60
== END 2018-10-12 12:44 ==
LOC: NEPE 15:21 → NEDA 15:21 → NEPGCP 19:59
PROVIDERS: ADMIT Internal Medicine Interventional Cardiology; ATTEND Internal Medicine Interventional Cardiology
CPT/HCPCS: 71010; 71045; 80053; 82550; 82552; 83690; 84484; 85025; 93005; 99285; G0378